=== PATIENT | female | born 1965 | race Caucasian/White ===

== ENCOUNTER 2021-03-12 08:47 | Outpatient (REF) | payer MEDICARE, OTHER, SELFPAY ==
[2021-03-12 09:56] LABS: COVID-19 Test Negative (Negative)
== END 2021-03-12 08:48 | disposition home or self-care (01) ==
LOC: HO.LAB 08:47
PROVIDERS: PCP Nurse Practitioner; Visit Provider Internal Medicine
DX: Z20.822 Contact with and (suspected) exposure to COVID-19 (principal)
CPT/HCPCS: 36415; 87635; C9803

== ENCOUNTER 2024-10-28 11:03 | Outpatient (AMB) | payer MEDICARE, OTHER, MEDICAID, SELFPAY ==
--- OUTSIDE RECORDS SUMMARY | 2024-10-28 11:05 | XMS_ITS | Encounter Summary ---
Author Organization [facility] Address [address] [place] [phone] Phone Care Team Providers Care Sales Associate Name Role Phone Alicia Talavera MD Primary Care Provider [phone]- [phone] Encounter Details Date Type Department Care Team (Late st Contact Info) Description 07/11/2020 Ancillary Orders Virtual Department [address] [place] [phone] Alicia Talavera MD [address] [place] [phone] [email or web address] Breast screening Social History Tobacco Use Types Packs/Day Years Used Date Smoking Tobacco: Never Smokeless Tobacco: Never Alcohol Use Standard Drinks/Week Comments No 0 (1 standard drink = 0.6 oz pur e alcohol) Comments No Sex and Gender Information Value Date Recorded Sex Assigned at Female 11/02/2018 1:09 PM EDT Legal Sex Female 9:38 PM EDT Gender Identity Female 11/02/2018 1:09 PM EDT Sexual Orientation Not on file documented as of this encounter Plan of Treatment Not on file documented as of this encounter Results * BI MAMMOGRAM SCREENING WITH TOMOSYNTHESIS WITH CAD (BILATERAL) (07/24/2020 3:34 PM EDT) Anatomical Region Laterality Modality Breast Left, Breast Right, Breast Bilateral Bila teral Mammography 07/24/2020 3:35 PM EDT Impressions 07/24/2020 3:41 PM EDT BILATERAL BREASTS: Negative, no evidence of malignancy. Normal interval follow- up is recommended in 12 months. Bi-RADS: BI-RADS CATEGORY: 1 - Negative. DENSITY: The breast tissue is heterogeneously dense, which could obscure a lesion on mammography. Narrative 07/24/2020 3:41 PM EDT STUDY: Bilateral screening mammography with tomosynthesis and CAD TECHNIQUE: Bilateral full-field digital screening mammography is obtained and read in conjunction with computer-aided detection. Tomosynthesis as well as 2-D C view imaging were obtained. COMPARISON: Comparison made to multiple prior, most recent May 23, 2019, and most remote January 26, 2014. BREAST COMPOSITION: The breast tissue is heterogeneously dense, which may obscure small masses. BILATERAL BREASTS: No significant masses, suspicious calcifications or other abnormalities are seen. Procedure Note Yvette Fry MD - 07/24/2020 STUDY: Bilateral screening mammography with tomosynthesis and CAD TECHNIQUE: Bilateral full-field digital screening mammography is obtainedand read in conjunction with computer-aided detection. Tomosynthesis aswell as 2-D C view imaging were obtained. COMPARISON: Comparison made to multiple prior, most recent May 23, 2019,and most remote January 26, 2014. BREAST COMPOSITION: The breast tissue is heterogeneously dense, which mayobscure small masses. BILATERAL BREASTS: No significant masses, suspicious calcifications orother abnormalities are seen. IMPRESSION: BILATERAL BREASTS: Negative, no evidence of malignancy. Normal intervalfollow-up is recommended in 12 months. Bi-RADS: BI-RADS CATEGORY: 1 - Negative. DENSITY: The breast tissue is heterogeneously dense, which could obscurea lesion on mammography. Alicia Talavera MD IM MG EXAMS Final Resul t documented in this encounter Visit Diagnoses Diagnosis Breast screening Breast screening, unspecified Breast screening Breast screening, unspecified documented in this encounter Care Teams Sales Associate Relationship Specialty Start Date End Date Alicia Talavera MD [address] [place] [phone] [email or web address] PCP - General Internal Medicine 01/25/17 documented as of this encounter Additional Source Comments The information contained in this document represents components of the legal health record. It is not the complete legal health record.[facility]
--- NOTE | 2024-10-28 12:15 | AM.OFFWIN_ITS ---
Intake Vital Signs 10/28/24 12:20 Height 5 ft 4 in Weight 213 lb BMI 36.6 BP 120/74 Blood Pressure Location Lt brachial Position Sitting Respiration 18 Pulse 64 Pulse Source Pulse Oximeter Temp 97.7 F Temp Source Oral Pulse Oximetry (%) 97 Oxygen Delivery Method Room Air Intake Visit Reasons: BARIATRIC PROGRAM COORDINATOR-Tick Intake Note: Pt is here today for walk in visit. Pt c/o bug bite on R lower leg/calf. Allergies No Known Allergies Allergy (Verified 10/28/24 12:24) HPI BARIATRIC PROGRAM COORDINATOR-Tick HPI Details Patient is a 59-year-old female comes to the walk-in with her mother, came home from day program lesion to the right medial calf suspicious for a bug bite. Patient is poor historian due to cognitive deficiency. No apparent fever chills, malaise or myalgias, weakness, dizziness or vertigo, nausea vomiting or diarrhea, or other significant associated symptoms. Review of Systems Const All systems reviewed & are unremarkable except as noted in HPI and below Physical Exam Exam Exam: Patient has lesion to the right medial calf mid tibial level, with some surrounding erythema and edema. Central puncture, no attached tick or other insect or foreign body. No tenderness, warmth, or streaking or discharge noted. Vital Signs: Last Vital Signs Temp 97.7 F 10/28/24 12:20 Pulse 64 10/28/24 12:20 Resp 18 10/28/24 12:20 BP 120/74 10/28/24 12:20 Pulse Ox 97 10/28/24 12:20 Oxygen Delivery Method Room Air 10/28/24 12:20 BMI result Body Mass Index 36.6 Assessment & Plan Assessment & Plan (1) Insect bite: Code(s): W57.XXXA - Bitten or stung by nonvenomous insect and other nonvenomous arthropods, initial encounter Plan Patient is a 59-year-old female with what appears to be insect bite to the right medial calf, with some erythema and edema surrounding. Possible spider or tick bite, with no obvious insect, although patient is unreliable historian. We will treat with doxycycline for full course due to unknown length of attachment time, and already has some erythema and edema surrounding. Follow up if symptoms persist or worsen and go to the emergency department with worrisome symptoms Medications: New doxycycline monohydrate 100 mg PO BID 28 caps 0RF 14 days Coding Level of Care Code New Pt Level 4 (17851) Diagnoses Insect bite W57.XXXA
[2024-10-28 12:20] VITALS: BP 120/74; PULSE 64; RESP 18; TEMP 36.5; O2SAT 97; BMI 36.6
== END 2024-10-28 12:57 | disposition home or self-care (01) ==
LOC: HO.HMCWIC 11:03
PROVIDERS: PCP Nurse Practitioner; Visit Provider Physician Assistant Medical
DX: T63.481A Toxic effect of venom of other arthropod, accidental (unintentional), initial encounter (principal)

== ENCOUNTER → 2024-10-28 11:03 | Outpatient (BNVA) | payer MEDICARE, OTHER, MEDICAID, SELFPAY | PROVIDERS: PCP Nurse Practitioner; Visit Provider Physician Assistant Medical | DX: S80.861A Insect bite (nonvenomous), right lower leg, initial encounter (principal); W57.XXXA Bitten or stung by nonvenomous insect and other nonvenomous arthropods, initial encounter | CPT/HCPCS: 99202 ==

== ENCOUNTER 2025-01-10 10:30 | Outpatient (REF) | payer MEDICARE, OTHER, MEDICAID, SELFPAY ==
--- NOTE | ~2025-01-10 | XR_ITS ---
EXAMINATION: XR RIBS 3 VIEWS MINIMUM WITH CHEST RIGHT HISTORY: W19.XXXA - Unspecified fall, initial encounter COMPARISON: There are no prior studies available for comparison. FINDINGS: A single PA view of the chest and 4 views of the right ribs are submitted. The lungs are expanded and clear. There is no pleural effusion, pneumothorax, or pulmonary vascular congestion. The heart is normal in size. There is mild to moderate levoscoliosis of the spine. Right ribs are intact. No fracture is seen. XR/XR ribs RT min 3V w CXR1V IMPRESSION: Clear lungs. No right rib fracture is identified. Electronically signed by: Zeeshan Barnes MD 01/10/2025 11:34 AM EDT
--- OUTSIDE RECORDS SUMMARY | 2025-01-10 15:03 | XMS_ITS | Encounter Summary ---
Author Organization [facility] Address [address] [place] [address] Phone Care Team Providers Care Psychodramatist Name Role Phone Alicia Talavera MD Primary Care Provider [phone]- [phone] Encounter Details Date Type Department Care Team (Late st Contact Info) Description 04/29/2017 Ancillary Orders Virtual Department [address] [place] [address] Mila Daly PA [address] [place] [address] [email or web address] [email or web address]; Fever, unspecified fever cause Social History Tobacco Use Types Packs/Day Years Used Date Smoking Tobacco: Never Assessed Comments Unknown Sex and Gender Information Value Date Recorded Sex Assigned at Female 11/02/2018 1:09 PM EDT Legal Sex Female 9:38 PM EDT Gender Identity Female 11/02/2018 1:09 PM EDT Sexual Orientation Not on file documented as of this encounter Plan of Treatment Upcoming Encounters Date Type Department Care Team (Late Contact Info) Description 12/13/2024 Procedure Pass [address] [address] 08/07/2025 8:00 AM EDT Appointment [address] [address] Alicia Talavera MD [address] [place] [address] documented as of this encounter Results * XR CHEST PA AND LATERAL 2 VIEWS (05/03/2017 10:04 AM EST) Anatomical Region Laterality Modality Chest Radiographic Aleida ging 05/03/2017 10:0 5 AM EST Impressions 05/03/2017 10:06 AM EST No evidence of active cardiopulmonary disease. POS [id number] Narrative 05/03/2017 10:06 AM EST Frontal and lateral views are compared with the prior studies of 12/27/2016 and 10/03/2010 and reveal the lungs to be well-expanded and overall clear without focal infiltrates or pleural effusions present. The heart and pulmonary vessels are within normal limits in size and the visualized bony thorax appears intact. Procedure Note Kim Max MD - 05/03/2017 Frontal and lateral views are compared with the prior studies of12/27/2016 and 10/03/2010 and reveal the lungs to be well-expanded andoverall clear without focal infiltrates or pleural effusions present. Theheart and pulmonary vessels are within normal limits in size and thevisualized bony thorax appears intact. IMPRESSION: No evidence of active cardiopulmonary disease. POS [id number] Mila BROUSSARD IMG XR CHEST Final Result documented in this encounter Visit Diagnoses Diagnosis Cough Fever, unspecified fever cause Cough Fever, unspecified fever cause documented in this encounter Care Teams Psychodramatist Relationship Specialty Start Date End Date Alicia Talavera MD [address] [place] [phone] [email or web address] PCP - General Internal Medicine 01/25/17 documented as of this encounter Additional Source Comments The information contained in this document represents components of the legal health record. It is not the complete legal health record.[facility]
--- OUTSIDE RECORDS SUMMARY | 2025-01-10 15:03 | XMS_ITS | Encounter Summary ---
Author Organization [facility] Address [address] [place] [address] Care Team Providers Care Research Animal Facility Supervisor Name Role Phone Alicia Talavera Primary Care Provider [phone]- [phone] Reason for Visit * Reason Onset Date Comments Med Refill 02/09/2020 Encounter Details Date Type Department Care Team (Late st Contact Info) Description 02/09/2020 Refill [facility] [address] [place] [phone] Nini Hinton LPN Nonintractable generalized idiopathic epilepsy without status epilepticus Social History Tobacco Use Types Packs/Day Years Used Date Smoking Tobacco: Never Smokeless Tobacco: Never Comments:: Alcohol Use Standard Drinks/Week Comments No 0 (1 standard drink = 0.6 oz pur e alcohol) Comments Unknown Sex and Gender Information Value Date Recorded Sex Assigned at Female 06/15/2019 4:25 PM EDT Legal Sex Female 3:49 AM EDT Gender Identity Female 06/15/2019 4:25 PM EDT Sexual Orientation Straight 06/15/2019 4: 25 PM EDT documented as of this encounter Plan of Treatment Not on file documented as of this encounter Visit Diagnoses Diagnosis Nonintractable generalized idiopathic epilepsy without status epilepticus documented in this encounter Care Teams Research Animal Facility Supervisor Relationship Specialty Start Date End Date Alicia Talavera [address] [place] [phone] PCP - General 10/08/16 documented as of this encounter
--- OUTSIDE RECORDS SUMMARY | 2025-01-10 15:03 | XMS_ITS | Encounter Summary ---
Author Organization [facility] Address [address] [place] [address] Phone Care Team Providers Care Cleaner Window Name Role Phone Alicia Talavera MD Primary Care Provider [phone]- [phone] Encounter Details Date Type Department Care Team (Late st Contact Info) Description 01/25/2017 Ancillary Orders Virtual Department [address] [place] [phone] Alicia Talavera MD [address] [place] [phone] [email or web address] Breast screening Social History Tobacco Use Types [...] Encounters Date Type Department Care Team (Late st Contact Info) Description 12/13/2024 Procedure Pass [address] [address] 08/07/2025 8:00 AM EDT Appointment [address] [address] Alicia Talavera MD [address] [place] [phone] documented as of this encounter Results * BI MAMMOGRAM SCREENING WITH TOMOSYNTHESIS WITH CAD (BILATERAL) (05/13/2017 3:44 PM EST) Anatomical Region Laterality Modality Breast Left, Breast Right, Breast Bilateral Bila teral Mammography 05/13/2017 4:4 8 PM EST Impressions 05/13/2017 4:50 PM EST No mammographic evidence of malignancy. BI-RADS CATEGORY: 2 - Benign finding. DENSITY: The breast tissue is heterogeneously dense, an appearance which lowers the sensitivity of mammography. POS - [id number] Narrative 05/13/2017 4:50 PM EST Standard digital full-field 2-D C view and two-plane tomographic imaging was performed and compared with multiple prior studies, most recently 03/03/2016, with utilization of computer-aided detection. The breast parenchyma is heterogeneously dense, somewhat limiting mammographic sensitivity. The stromal markings are essentially unchanged in overall appearance and distribution. No dominant spiculated mass, suspicious clustered microcalcifications, or focal zone of pathologic skin thickening or retraction are noted to have arisen in the interim. Punctate grossly benign-appearing microcalcifications, more numerous on the left than right, display no worrisome interval change. Procedure Note Kim Max MD - 05/13/2017 Standard digital full-field 2-D C view and two-plane tomographic imagingwas performed and compared with multiple prior studies, most xkhzoakt21/13/2016, with utilization of computer-aided detection. The breast parenchyma is heterogeneously dense, somewhat limitingmammographic sensitivity. The stromal markings are essentially unchangedin overall appearance and distribution. No dominant spiculated mass,suspicious clustered microcalcifications, or focal zone of pathologic skinthickening or retraction are noted to have arisen in the interim. Punctategrossly benign-appearing microcalcifications, more numerous on the leftthan right, display no worrisome interval change. IMPRESSION: No mammographic evidence of malignancy. BI-RADS CATEGORY: 2 - Benign finding. DENSITY: The breast tissue is heterogeneously dense, an appearance whichlowers the sensitivity of mammography. POS - [email or web address] us Alicia Talavera MD IMG MG EXAMS Final Resul t documented in this encounter Visit Diagnoses Diagnosis Breast screening Breast screening, unspecified Breast screening Breast screening, unspecified documented in this encounter Care Teams Cleaner Window Relationship Specialty Start Date End Date Alicia Talavera MD [address] [place] [phone] [email or web address] PCP - General Internal Medicine 01/25/17 documented as of this encounter Additional Source Comments The information contained in this document represents components of the legal health record. It is not the complete legal health record.[facility]
--- OUTSIDE RECORDS SUMMARY | 2025-01-10 15:03 | XMS_ITS | Encounter Summary ---
Author Organization [facility] Address [address] [place] [phone] Phone Care Team Providers Care Cinder Worker Name Role Phone Alicia Talavera MD Primary Care Provider [phone]- [phone] Encounter Details Date Type Department Care Team (Late st Contact Info) Description 09/27/2019 Ancillary Orders Virtual Department [address] [place] [phone] Alicia Talavera MD [address] [place] [phone] [email or web address] Post-menopausal Social History Tobacco Use Types Packs/Day Years [...] st Contact Info) Description 12/13/2024 Procedure Pass [address] [address] 08/07/2025 8:00 AM EDT Appointment [address] [address] Alicia Talavera MD [address] [place] [address] [email or web address] documented as of this encounter Visit Diagnoses Diagnosis Post-menopausal Asymptomatic postmenopausal status (age-related) (natural) documented in this encounter Care Teams Cinder Worker Relationship Specialty Start Date End Date Alicia Talaevra MD [address] [place] [email or web address] PCP - General Internal Medicine 01/25/17 documented as of this encounter Additional Source Comments The information contained in this document represents components of the legal health record. It is not the complete legal health record.[facility]
--- OUTSIDE RECORDS SUMMARY | 2025-01-10 15:03 | XMS_ITS | Encounter Summary ---
Author Organization [facility] Address [address] [place] [address] Phone Care Team Providers Care Waste Management Engineer Name Role Phone Alicia Talavera MD Primary Care Provider [phone]- [phone] Encounter Details Date Type Department Care Team (Late st Contact Info) Description 03/30/2019 Ancillary Orders Virtual Department [address] [place] [phone] Alicia Talavera MD [address] [place] [phone] [email or web address] Breast screening Social History Tobacco Use Types [...] st Contact Info) Description 12/13/2024 Procedure Pass [address] [address] 08/07/2025 8:00 AM EDT Appointment [address] [address] Alicia Talavera MD [address] [place] [phone] [email or web address] documented as of this encounter Results * BI MAMMOGRAM SCREENING WITH TOMOSYNTHESIS WITH CAD (BILATERAL) (05/23/2019 9:37 AM EST) Anatomical Region Laterality Modality Breast Left, Breast Right, Breast Bilateral Bila teral Mammography 05/23/2019 11:5 5 AM EST Impressions 05/23/2019 12:00 PM EST No findings suspicious for malignancy. In the absence of a worrisome palpable abnormality, annual screening mammography is recommended. BI-RADS CATEGORY: 2 - Benign finding. DENSITY: The breast tissue is heterogeneously dense, an appearance which lowers the sensitivity of mammography. POS [id number] Narrative 05/23/2019 12:00 PM EST COMPARISON: 12/26/2012 through 05/16/2018. Bilateral 3-D tomosynthesis with 2-D reconstructions in the CC and MLO projection of each breast was obtained. Computer-aided detection system also utilized. No new mass, asymmetry, architectural distortion or suspicious calcifications have become apparent on either side. Scattered punctate calcifications, predominantly on the left, unchanged. No suspicious clusters. Procedure Note Ronak Wolf MD - 05/23/2019 COMPARISON: 12/26/2012 through 05/16/2018. Bilateral 3-D tomosynthesis with 2-D reconstructions in the CC and MLOprojection of each breast was obtained. Computer-aided detection systemalso utilized. No new mass, asymmetry, architectural distortion or suspiciouscalcifications have become apparent on either side. Scattered punctate calcifications, predominantly on the left, unchanged.No suspicious clusters. IMPRESSION: No findings suspicious for malignancy. In the absence of a worrisomepalpable abnormality, annual screening mammography is recommended. BI-RADS CATEGORY: 2 - Benign finding. DENSITY: The breast tissue is heterogeneously dense, an appearance whichlowers the sensitivity of mammography. POS [id number] Alicia Talavera MD IM MG EXAMS Final Resul t documented in this encounter Visit Diagnoses Diagnosis Breast screening Breast screening, unspecified Breast screening Breast screening, unspecified documented in this encounter Care Teams Waste Management Engineer Relationship Specialty Start Date End Date Alicia Talavera MD [address] [place] [phone] [email or web address] PCP - General Internal Medicine 01/25/17 documented as of this encounter Additional Source Comments The information contained in this document represents components of the legal health record. It is not the complete legal health record.[facility]
--- OUTSIDE RECORDS SUMMARY | 2025-01-10 15:03 | XMS_ITS | Encounter Summary ---
Author Organization [facility] Address [address] [place] [address] Phone Care Team Providers Care Lay Up Operator Name Role Phone Alicia Talavera MD Primary Care Provider [phone] Encounter Details Date Type Department Care Team (Late st Contact Info) Description 08/03/2017 Ancillary Orders [facility] Orthopedics & Sports Medicine [address] [place] [address] Tennille Zhu MD [address] [place] [address] Orthopedics & Sports Medicine, [facility] [place] [address] [email or web address] Social History Tobacco Use Types Packs/Day Years [...] st Contact Info) Description 12/13/2024 Procedure Pass [address] [address] 08/07/2025 8:00 AM EDT Appointment [address] [address] Alicia Talavera MD [address] [place] [address] [email or web address] documented as of this encounter Visit Diagnoses Not on filedocumented in this encounter Care Teams Lay Up Operator Relationship Specialty Start Date End Date Alicia Talavera MD [address] [place] [address] [email or web address] PCP - General Internal Medicine 01/25/17 documented as of this encounter Additional Source Comments The information contained in this document represents components of the legal health record. It is not the complete legal health record.[facility]
--- OUTSIDE RECORDS SUMMARY | 2025-01-10 15:03 | XMS_ITS | Encounter Summary ---
Author Organization [facility] Address [address] [place] [address] Phone Care Team Providers Care Cook Syrup Maker Name Role Phone Alicia Talavera MD Primary Care Provider [phone]- [phone] Encounter Details Date Type Department Care Team (Late Contact Info) Description 12/13/2024 Transcribe Orders Virtual Department [address] [place] [address] Alicia Talavera MD [address] [place] [address] [email or web address] Breast screening (Primary Dx) Social History Tobacco Use Types Packs/Day Years Used Date Smoking Tobacco: Never Smokeless Tobacco: Never Alcohol Use Standard Drinks/Week Comments No 0 (1 standard drink = 0.6 oz pur e alcohol) Education Answer Date Recorded Are you interested in more education? Not on danyelle e 07/17/2022 Are you concerned about learning? Not on file 07/17/2022 No 07/17/2022 No 07/17/2022 Digital Access Answer Date Recorded No 08/15/2022 No 08/15/2022 Reliable internet access at home? Not on file 08/15/2022 Device with a working camera? Not on file Comments No Sex and Gender Information Value Date Recorded Sex Assigned at Female 11/02/2018 1:09 PM EDT Legal Sex Female 9:38 PM EDT Gender Identity Female 11/02/2018 1:09 PM EDT Sexual Orientation Not on file documented as of this encounter Plan of Treatment Upcoming Encounters Date Type Department Care Team (Late st Contact Info) Description 12/13/2024 Procedure Pass [facility], [address] [address] 08/07/2025 8:00 AM EDT Appointment [address] [address] Alicia Talavera MD [address] [place] [address] [email or web address] Scheduled Orders Name Type Priority Associated Diagnoses Orde r Schedule Mammogram Screening (Bilateral) Imaging Routine Breast screening Expected: 01/12/2025, Expires: 12/13/2025 documented as of this encounter Visit Diagnoses Diagnosis Breast screening- Primary Breast screening, unspecified documented in this encounter Care Teams Cook Syrup Maker Relationship Specialty Start Date End Date Alicia Talavera MD [address] [place] [address] [email or web address] PCP - General Internal Medicine 01/25/17 documented as of this encounter Additional Source Comments The information contained in this document represents components of the legal health record. It is not the complete legal health record.[facility]
--- OUTSIDE RECORDS SUMMARY | 2025-01-10 15:03 | XMS_ITS | Encounter Summary ---
Author Organization [facility] Address [address] [place] [address] Phone Care Team Providers Care Rn Faculty Name Role Phone Alicia Talavera MD Primary Care Provider [phone]- [phone] Reason for Referral * Physical Therapy (Routine) - Closed Specialty Diagnoses / Procedures Referred By Conthollis t Referred To Contact Physical Therapy Diagnoses Encounter for rehabilitation System, Provider Not In, PhD [id number] [place] [address] [address] [place] [address] Phone: tel: Referral ID Status Reason Start Date Expiration Date Visits Re quested Visits Authorized [id number] Closed 12/15/2017 03/21/2018 20 20 Encounter Details Date Type Department Care Team (Latest Contact Info) Description 12/15/2017 Transcribe Orders [facility] [address] [place] [address] Alicia Talavera MD [address] [place] [address] [email or web address] Encounter for rehabilitation (Primary Dx) Social History Tobacco Use Types [...] st Contact Info) Description 12/13/2024 Procedure Pass [address] [address] 08/07/2025 8:00 AM EDT Appointment [address] [address] Alicia Talavera MD [address] [place] [address] [email or web address] documented as of this encounter Procedures Procedure Name Priority Date/Time Associated Diagnosis Comments AMB REFERRAL TO [facility] PHYSICAL THERAPY Routine 01/12/2018 3:59 PM EDT Encounter for rehabilitation documented in this encounter Results * Ambulatory referral to [facility] Physical Therapy (01/12/2018 3:59 PM EDT) us Provider Not In System PhD AMB [facility] REFERRALS Fin al Result documented in this encounter Visit Diagnoses Diagnosis Encounter for rehabilitation- Primary documented in this encounter Care Teams Rn Faculty Relationship Specialty Start Date End Date Alicia Talavera MD [address] [place] [address] [email or web address] PCP - General Internal Medicine 01/25/17 documented as of this encounter Additional Source Comments The information contained in this document represents components of the legal health record. It is not the complete legal health record.[facility]
--- OUTSIDE RECORDS SUMMARY | 2025-01-10 15:03 | XMS_ITS | Encounter Summary ---
Author Organization [facility] Address [address] [place] [address] Phone Care Team Providers Care Boxing Trainer Name Role Phone Alicia Talavera MD Primary Care Provider [phone] Encounter Details Date Type Department Care Team (Late st Contact Info) Description 03/13/2020 Transcribe Orders Virtual Department [address] [place] [address] Alicia Talavera MD [address] [place] [phone] [email or web address] Abdominal pain, unspecified abdominal location (Primary Dx) Social History Tobacco Use Types [...] (Late Contact Info) Description 12/13/2024 Procedure Pass [address] [address] 08/07/2025 8:00 AM EDT Appointment [address] [address] Alicia Talavera MD [address] [place] [address] [phone] [email or web address] documented as of this encounter Results * XR ABDOMEN 1 VIEW (03/14/2020 9:30 AM EST) Anatomical Region Laterality Modality Abdomen Computed Radiogr aphy 03/14/2020 9:35 AM EST Impressions 03/14/2020 9:36 AM EST Nonspecific, nonobstructive bowel gas pattern with findings consistent with coprostasis. Narrative 03/14/2020 9:36 AM EST XR ABDOMEN 1 VIEW Single AP view of the abdomen COMPARISON: None FINDINGS: The bowel gas pattern is nonspecific with a large amount of stool being present scattered throughout the abdomen. Bowel gas extends into the rectosigmoid. There are degenerative changes of the lumbar spine. No convincing evidence of bowel obstruction or free air. Procedure Note Fredrick Baig MD - 03/14/2020 XR ABDOMEN 1 VIEW Single AP view of the abdomen COMPARISON: None FINDINGS: The bowel gas pattern is nonspecific with a large amount ofstool being present scattered throughout the abdomen. Bowel gas extendsinto the rectosigmoid. There are degenerative changes of the lumbar spine.No convincing evidence of bowel obstruction or free air. IMPRESSION: Nonspecific, nonobstructive bowel gas pattern with findings consistentwith coprostasis. Alicia Talavera MD IMG XR ABDOMEN Final Resul t documented in this encounter Visit Diagnoses Diagnosis Abdominal pain, unspecified abdominal location- Primary Abdominal pain, unspecified abdominal location documented in this encounter Care Teams Boxing Trainer Relationship Specialty Start Date End Date Alicia Talavera MD [address] [place] [address] [email or web address] PCP - General Internal Medicine 01/25/17 documented as of this encounter Additional Source Comments The information contained in this document represents components of the legal health record. It is not the complete legal health record.[facility]
--- OUTSIDE RECORDS SUMMARY | 2025-01-10 15:03 | XMS_ITS | Encounter Summary ---
Author Organization [facility] Address [address] [place] [address] Phone Care Team Providers Care Correspondence Clerk Name Role Phone Alicia Talavera MD Primary Care Provider [phone] Encounter Details Date Type Department Care Team (Late st Contact Info) Description 02/06/2020 Transcribe Orders Virtual Department [address] [place] [address] Alicia Talavera MD [address] [place] [address] [email or web address] Low back pain, unspecified back pain laterality, unspecified chronicity, unspecified whether sciatica present (Primary Dx); Rib pain on left side; Rib pain on right side Social History Tobacco Use Types Packs/Day Years [...] st Contact Info) Description 12/13/2024 Procedure Pass [address] [address] 08/07/2025 8:00 AM EDT Appointment [address] [address] Alicia Talavera MD [address] [place] [address] [email or web address] documented as of this encounter Results * XR LUMBOSACRAL SPINE 4 OR MORE VIEWS (02/09/2020 3:30 PM EST) Anatomical Region Laterality Modality L-spine Computed Radiogr aphy 02/09/2020 3:31 PM EST Impressions 02/09/2020 3:33 PM EST Stable osteopenia and mild L5-S1 facet arthropathy. No significant degenerative changes or compression fractures. Narrative 02/09/2020 3:33 PM EST HISTORY: As above. COMPARISON: 07/09/2015. LUMBAR SPINE RADIOGRAPH FINDINGS: 6 images obtained. Chronic moderate diffuse osteopenia. Stable mild lumbar spine curvature convex to the right. No significant scoliosis. No acute fracture or malalignment. Stable multilevel endplate spurring and mild L5-S1 facet arthropathy. No compression fractures. No spondylolysis. No destructive or suspicious bone lesions. Mild diffuse colonic stool volume. Procedure Note Beck Cohen MD - 02/09/2020 HISTORY: As above. COMPARISON: 07/09/2015. LUMBAR SPINE RADIOGRAPH FINDINGS: 6 images obtained. Chronic moderate diffuse osteopenia. Stable mild lumbar spine curvatureconvex to the right. No significant scoliosis. No acute fracture ormalalignment. Stable multilevel endplate spurring and mild L5-S1 facetarthropathy. No compression fractures. No spondylolysis. No destructive orsuspicious bone lesions. Mild diffuse colonic stool volume. IMPRESSION: Stable osteopenia and mild L5-S1 facet arthropathy. No significantdegenerative changes or compression fractures. Alicia Talavera MD IMG XR SPINE Final Resul t documented in this encounter Visit Diagnoses Diagnosis Low back pain, unspecified back pain laterality, unspecified chronicity, unspecified whether sciatica present- Primary Rib pain on left side Rib pain on right side Low back pain, unspecified back pain laterality, unspecified chronicity, unspecified whether sciatica present documented in this encounter Care Teams Correspondence Clerk Relationship Specialty Start Date End Date Alicia Talavera MD [address] [place] [address] [email or web address] PCP - General Internal Medicine 01/25/17 documented as of this encounter Additional Source Comments The information contained in this document represents components of the legal health record. It is not the complete legal health record.[facility]
--- OUTSIDE RECORDS SUMMARY | 2025-01-10 15:03 | XMS_ITS | Encounter Summary ---
Author Organization [facility] Address [address] [place] [address] Phone Care Team Providers Care Product Controller Name Role Phone Alicia Talavera MD Primary Care Provider [phone] Encounter Details Date Type Department Care Team (Late st Contact Info) Description 08/03/2017 Ancillary Orders [address] [address] Tennille Zhu MD [address] [place] [address] Orthopedics & Sports Medicine, [place] [address] [email or web address] Pain of right hand Social History Tobacco Use Types Packs/Day Years [...] st Contact Info) Description 12/13/2024 Procedure Pass [address] [address] 08/07/2025 8:00 AM EDT Appointment [address] [address] Alicia Talavera MD [address] [place] [address] documented as of this encounter Results * XR HAND 3 OR MORE VIEWS (RIGHT) (08/05/2017 1:45 PM EDT) Narrative Gretchen Wood - 08/05/2017 1:46 PM EDT This image report has been auto-finalized and has not been read by a Radiologist. Interpretation has been included in the provider encounter note for this date of service. us Tennille Zhu MD IMG XR UPPER EXTREMITY Final Result documented in this encounter Visit Diagnoses Diagnosis Pain of right hand Pain of right hand documented in this encounter Care Teams Product Controller Relationship Specialty Start Date End Date Alicia Talavera MD [address] [place] [address] [email or web address] PCP - General Internal Medicine 01/25/17 documented as of this encounter Additional Source Comments The information contained in this document represents components of the legal health record. It is not the complete legal health record.[facility]
--- OUTSIDE RECORDS SUMMARY | 2025-01-10 15:03 | XMS_ITS | Encounter Summary ---
Author Organization [facility] Address [address] [place] [address] Phone Care Team Providers Care Gamma Ray Operator Name Role Phone Alicia Talavera MD Primary Care Provider [phone] Encounter Details Date Type Department Care Team (Late st Contact Info) Description 08/31/2017 Ancillary Orders [facility] Orthopedics & Sports Medicine [address] [place] [address] Nancy Del Rio PA-C [address] [place] [address] Orthopedics & Sports Medicine, [facility] [place] [address] Social History Tobacco Use Types Packs/Day Years [...] st Contact Info) Description 12/13/2024 Procedure Pass [address] [address] 08/07/2025 8:00 AM EDT Appointment [address] [address] Alicia Talavera MD [address] [place] [address] documented as of this encounter Visit Diagnoses Not on filedocumented in this encounter Care Teams Gamma Ray Operator Relationship Specialty Start Date End Date Alicia Talavera MD [address] [place] [address] [email or web address] PCP - General Internal Medicine 01/25/17 documented as of this encounter Additional Source Comments The information contained in this document represents components of the legal health record. It is not the complete legal health record.[facility]
--- OUTSIDE RECORDS SUMMARY | 2025-01-10 15:03 | XMS_ITS | Encounter Summary ---
Author Organization [facility] Address [address] [place] [address] Phone Care Team Providers Care Acoustical Tile Patternmaker Name Role Phone Alicia Talavera MD Primary Care Provider [phone] Encounter Details Date Type Department Care Team (Late Contact Info) Description 11/18/2018 Transcribe Orders [facility] [address] [place] [address] Linda Vargas MD [address] [place] [phone] [email or web address] Cursive epilepsy (Primary Dx) Social History Tobacco Use Types [...] (Late Contact Info) Description 12/13/2024 Procedure Pass [address] [address] 08/07/2025 8:00 AM EDT Appointment [address] [address] Alicia Talavera MD [address] [place] [address] [email or web address] documented as of this encounter Results * (ABNORMAL) Phenobarbital (11/18/2018 10:01 AM EDT) PHENOBARBITAL 30.9(H) 10.0 - 30.0 ug/mL [facility] Comment:Toxic: Greater than 50.0 ug/ml. Blood 11/18/2018 10:0 1 AM EDT 11/18/2018 10:08 AM EDT Linda Vargas MD LAB BLOOD ORDERABLES Fin al Result Performing Organization Address [facility]/ZIP Co de Phone Number [address] [address] * (ABNORMAL) Dilantin level (11/18/2018 10:01 AM EDT) Pathologist [facility] DILANTIN 24.0(H) 10 - 20 ug/mL [facility] Blood 11/18/2018 10:0 1 AM EDT 11/18/2018 10:08 AM EDT us Linda Vargas MD LAB BLOOD ORDERABLES Fin al Result Performing Organization Address City/[facility]/ZIP Co de Phone Number [address] [address] * (ABNORMAL) Comprehensive metabolic panel (11/18/2018 10:01 AM EDT) SODIUM 140 133 - 146 mmol/L [facility] POTASSIUM 4.4 3.3 - 5.1 mmol/L [facility] CHLORIDE 101 96 - 108 mmol/L [facility] CO2 30 21 - 35 mmol/L [facility] BUN 8 6 - 19 mg/dL [facility] CREATININE 0.50 0.5 - 1.5 mg/dL [facility] GLUCOSE 97 70 - 99 mg/dL [facility] ALBUMIN 4.1 3.9 - 4.8 g/dL [facility] TOTAL PROTEIN 7.4 6.5 - 8.0 g/dL [facility] CALCIUM 9.5 8.4 - 10.3 mg/dL [facility] ALKALINE PHOSPHATASE 192(H) 39 - 117 U/L [facility] TOTAL BILIRUBIN 0.2 0.0 - 1.2 mg/dL [facility] AST 15 0 - 37 U/L [facility] ALT 15 0 - 40 U/L [facility] GLOBULIN 3.3 1 - 4.8 g/dL [facility] EGFR 112 >59 mL/min/1.7 3m2 [facility] Comment:If patient is black, multiply result by 1.159. Estimated glomerular filtration rate calculated using the CKD-EPI equation. ANION GAP 13 10 - 20 mmol/L [facility] Blood 11/18/2018 10:0 1 AM EDT 11/18/2018 10:08 AM EDT us Linda Vargas MD LAB BLOOD ORDERABLES Fin al Result Performing Organization Address City/State/[facility] Co de Phone Number [address] [address] documented in this encounter Visit Diagnoses Diagnosis Cursive epilepsy- Primary Other forms of epilepsy and recurrent seizures without mention of intractable epilepsy documented in this encounter Care Teams Acoustical Tile Patternmaker Relationship Specialty Start Date End Date Alicia Talavera MD [address] [place] [address] [email or web address] PCP - General Internal Medicine 01/25/17 documented as of this encounter Additional Source Comments The information contained in this document represents components of the legal health record. It is not the complete legal health record.[facility]
--- OUTSIDE RECORDS SUMMARY | 2025-01-10 15:03 | XMS_ITS | Encounter Summary ---
Author Organization [facility] Address [address] [place] [address] Phone Care Team Providers Care Research Assistant Member Name Role Phone Alicia Talavera MD Primary Care Provider [phone]- [phone] Encounter Details Date Type Department Care Team (Late st Contact Info) Description 10/12/2019 Ancillary Orders Virtual Department [address] [place] [address] Alicia Talavera MD [address] [place] [address] [email or web address] Post-menopausal; Osteopenia, unspecified location Social History Tobacco Use Types Packs/Day Years [...] st Contact Info) Description 12/13/2024 Procedure Pass [address] [address] 08/07/2025 8:00 AM EDT Appointment [address] [address] Alicia Talavera MD [address] [place] [address] [email or web address] documented as of this encounter Visit Diagnoses Diagnosis Post-menopausal Asymptomatic postmenopausal status (age-related) (natural) Osteopenia, unspecified location documented in this encounter Care Teams Research Assistant Member Relationship Specialty Start Date End Date Alicia Talavera MD [address] [place] [address] [email or web address] PCP - General Internal Medicine 01/25/17 documented as of this encounter Additional Source Comments The information contained in this document represents components of the legal health record. It is not the complete legal health record.[facility]
--- OUTSIDE RECORDS SUMMARY | 2025-01-10 15:03 | XMS_ITS | Encounter Summary ---
Author Organization [facility] Address [address] [place] [address] Phone Care Team Providers Care Express Clerk Name Role Phone Alicia Talavera MD Primary Care Provider [phone]- [phone] Encounter Details Date Type Department Care Team (Late st Contact Info) Description 01/09/2020 Ancillary Orders Virtual Department [address] [place] [address] Alicia Talavera MD [address] [place] [email or web address] Osteoporosis, unspecified osteoporosis type, unspecified pathological fracture presence Social History Tobacco Use Types Packs/Day Years [...] st Contact Info) Description 12/13/2024 Procedure Pass [address] [address] 08/07/2025 8:00 AM EDT Appointment [address] [address] Alicia Talavera MD [address] [place] [address] [email or web address] documented as of this encounter Results * BD DXA AXIAL (SPINE) WITH HIP (01/29/2020 3:31 PM EST) Anatomical Region Laterality Modality Bone Density Bone Density 01/29/2020 3:32 PM EST Impressions 01/29/2020 3:34 PM EST Osteopenia with interval decrease in lumbar spine bone mineral density since 2010. POS - [id number] Narrative 01/29/2020 3:34 PM EST This is a 54-year-old apparently postmenopausal white female with a documented history of osteopenia, who is not on estrogen replacement therapy but does take daily calcium supplements and denies a family history of osteoporosis or a perceived height loss. Evaluation of the lumbar spine and hips was performed and felt to be technically adequate with comparison made to multiple prior studies, most recently 01/15/2011. Total bone mineral density in the L1-L4 vertebral bodies was calculated at 0.887 gm/cm2 with a T-score of -1.5 and Z-score of -0.6, falling within the WHO classification of osteopenia, representing an interval decline of 3.2% since 2010. Total bone mineral density in the right hip was calculated at 0.762 gm/cm2 with a T-score of -1.5 and Z-score of -0.9 falling within the WHO classification of osteopenia, without significant interval change from 2010. Total bone mineral density in the left hip was calculated at 0.767 gm/cm2 with a T-score of -1.4 and Z-score of -0.9 falling within the WHO classification of osteopenia, without significant interval change from 2010. Procedure Note Dalton Gonzalez MD - 01/29/2020 This is a 54-year-old apparently postmenopausal white female with adocumented history of osteopenia, who is not on estrogen replacementtherapy but does take daily calcium supplements and denies a familyhistory of osteoporosis or a perceived height loss. Evaluation of the lumbar spine and hips was performed and felt to betechnically adequate with comparison made to multiple prior studies, mostrecently 01/15/2011. Total bone mineral density in the L1-L4 vertebral bodies was calculated at0.887 gm/cm2 with a T-score of -1.5 and Z-score of -0.6, falling withinthe WHO classification of osteopenia, representing an interval decline of3.2% since 2010. Total bone mineral density in the right hip was calculated at 0.762 gm/xs0fiyf a T-score of -1.5 and Z-score of -0.9 falling within the WHOclassification of osteopenia, without significant interval change [id number]. Total bone mineral density in the left hip was calculated at 0.767gm/cm2 with a T-score of -1.4 and Z-score of -0.9 falling within the WHOclassification of osteopenia, without significant interval change [id number]. IMPRESSION: Osteopenia with interval decrease in lumbar spine bone mineral densitysince 2010. POS - [id number] Alicia Talavera MD IM BD BONE DENSITY DEXA nal Result documented in this encounter Visit Diagnoses Diagnosis Osteoporosis, unspecified osteoporosis type, unspecified pathological fracture presence Osteoporosis, unspecified osteoporosis type, unspecified pathological fracture presence documented in this encounter Care Teams Express Clerk Relationship Specialty Start Date End Date Alicia Talavera MD [address] [place] [address] [email or web address] PCP - General Internal Medicine 01/25/17 documented as of this encounter Additional Source Comments The information contained in this document represents components of the legal health record. It is not the complete legal health record.[facility]
--- OUTSIDE RECORDS SUMMARY | 2025-01-10 15:03 | XMS_ITS | Encounter Summary ---
Author Organization [facility] Address [address] [place] [address] Phone Care Team Providers Care Wood Boatbuilder Name Role Phone Alicia Talavera MD Primary Care Provider [phone]- [phone] Encounter Details Date Type Department Care Team (Late st Contact Info) Description 07/11/2020 Ancillary Orders Virtual Department [address] [place] [address] Alicia Talavera MD [address] [place] [address] [email or web address] Breast screening Social History Tobacco Use Types [...] st Contact Info) Description 12/13/2024 Procedure Pass [address] [address] 08/07/2025 8:00 AM EDT Appointment [address] [address] Alicia Talavera MD [address] [place] [address] [email or web address] documented as of this encounter Results * [...] obscurea lesion on mammography. Alicia Talavera MD IMG MG EXAMS Final Resul t documented in this encounter Visit Diagnoses Diagnosis Breast screening Breast screening, unspecified Breast screening Breast screening, unspecified documented in this encounter Care Teams Wood Boatbuilder Relationship Specialty Start Date End Date Alicia Talavera MD [address] [place] [address] [email or web address] PCP - General Internal Medicine 01/25/17 documented as of this encounter Additional Source Comments The information contained in this document represents components of the legal health record. It is not the complete legal health record.[facility]
--- OUTSIDE RECORDS SUMMARY | 2025-01-10 15:03 | XMS_ITS | Encounter Summary ---
Author Organization [facility] Address [address] [place] [address] Care Team Providers Care Excelsior Machine Feeder Name Role Phone Alicia Talavera Primary Care Provider [phone]- [phone] Reason for Visit * Reason Onset Date Comments Med Refill 02/19/2020 Encounter Details Date Type Department Care Team (Late st Contact Info) Description 02/19/2020 Refill [facility] [address] [place] [address] Nini Hinton LPN Nonintractable generalized idiopathic epilepsy [...] epilepticus documented in this encounter Care Teams Excelsior Machine Feeder Relationship Specialty Start Date End Date Alicia Talavera [address] [place] [phone] PCP - General 10/08/16 documented as of this encounter
--- OUTSIDE RECORDS SUMMARY | 2025-01-10 15:03 | XMS_ITS | Encounter Summary ---
Author Organization [facility] Address [address] [place] [address] Phone Care Team Providers Care Order Department Supervisor Name Role Phone Alicia Talavera MD Primary Care Provider [phone] Encounter Details Date Type Department Care Team (Late st Contact Info) Description 08/31/2017 Ancillary Orders [address] [address] Nancy Del Rio PA-C [address] [place] [address] Orthopedics & Sports Medicine, [place] [address] [email or web address] Pain of finger of right hand Social History Tobacco Use [...] st Contact Info) Description 12/13/2024 Procedure Pass [address] [address] 08/07/2025 8:00 AM EDT Appointment [address] [address] Alicia Talavera MD [address] [place] [address] [email or web address] documented as of this encounter Results * XR FINGER 5TH DIGIT (RIGHT) (09/02/2017 3:06 PM EDT) Narrative Rosi Talamantes Y - 09/02/2017 3:06 PM EDT This image report has been auto-finalized and has not been read by a Radiologist. Interpretation has been included in the provider encounter note for this date of service. us Tennille Zhu MD IMG XR UPPER EXTREMITY Final Result documented in this encounter Visit Diagnoses Diagnosis Pain of finger of right hand Pain of finger of right hand documented in this encounter Care Teams Order Department Supervisor Relationship Specialty Start Date End Date Alicia Talavera MD [address] [place] [address] [email or web address] PCP - General Internal Medicine 01/25/17 documented as of this encounter Additional Source Comments The information contained in this document represents components of the legal health record. It is not the complete legal health record.[facility]
--- OUTSIDE RECORDS SUMMARY | 2025-01-10 15:03 | XMS_ITS | Encounter Summary ---
Author Organization [facility] Address [address] [place] [address] Phone Care Team Providers Care Professor Of History Name Role Phone Alicia Talavera MD Primary Care Provider [phone]- [phone] Encounter Details Date Type Department Care Team (Late Contact Info) Description 02/09/2020 Ancillary Orders Virtual Department [address] [place] [address] Alicia Talavera MD [address] [place] [address] [email or web address] Rib pain on left side Social History Tobacco Use Types Packs/Day [...] (Late Contact Info) Description 12/13/2024 Procedure Pass [address] [address] 08/07/2025 8:00 AM EDT Appointment [address] [address] Alicia Talavera MD [address] [place] [address] documented as of this encounter Results * XR RIBS 3 VIEW (BILATERAL) (02/09/2020 3:31 PM EST) Anatomical Region Laterality Modality Chest Computed Radiogr aphy 02/09/2020 3:35 PM EST Impressions 02/09/2020 3:39 PM EST No findings to account for the patient's pain. Narrative 02/09/2020 3:39 PM EST HISTORY: As above. COMPARISON: Chest x-ray 05/03/2017. BILATERAL RIB RADIOGRAPH FINDINGS: 9 images obtained. No acute fracture. No destructive or suspicious bone lesions. Imaged lungs are clear. No acute soft tissue findings Procedure Note Beck Cohen MD - 02/09/2020 HISTORY: As above. COMPARISON: Chest x-ray 05/03/2017. BILATERAL RIB RADIOGRAPH FINDINGS: 9 images obtained. No acute fracture. No destructive or suspicious bone lesions. Imaged lungsare clear. No acute soft tissue findings IMPRESSION: No findings to account for the patient's pain. Alicia Talavera MD IMG XR CHEST Final Resul t documented in this encounter Visit Diagnoses Diagnosis Rib pain on left side Rib pain on left side documented in this encounter Care Teams Professor Of History Relationship Specialty Start Date End Date Alicia Talavera MD [address] [place] [phone] [email or web address] PCP - General Internal Medicine 01/25/17 documented as of this encounter Additional Source Comments The information contained in this document represents components of the legal health record. It is not the complete legal health record.[facility]
--- OUTSIDE RECORDS SUMMARY | 2025-01-10 15:03 | XMS_ITS | Encounter Summary ---
Author Organization [facility] Address [address] [place] [address] Phone Care Team Providers Care Education Paraprofessional Name Role Phone Alicia Talavera MD Primary Care Provider [phone]- [phone] Encounter Details Date Type Department Care Team (Latest Contact Info) Description 08/30/2018 Transcribe Orders [facility] [address] [place] [address] Linda Vargas MA [email or web address] Cursive epilepsy (Primary Dx) Social History Tobacco [...] st Contact Info) Description 12/13/2024 Procedure Pass [address] [address] 08/07/2025 8:00 AM EDT Appointment [address] [address] Alicia Talavera MD [address] [place] [phone] documented as of this encounter Results * Phenytoin, Free & Total (08/30/2018 4:07 PM EDT) PHENYTOIN,FREE 2.[address] [facility] Phenytoin, Total 19.5 10.0 - 20.0 mcg/mL [facility] DPT OF LAB MED AND PAT+ Blood 08/30/2018 4:07 PM EDT 08/30/2018 4:10 PM EDT us Provider Not In System PhD LAB BLOOD ORDERABLES Final Result [facility] DPT OF LAB MED AND PAT+ [address] [place] [address] [facility] [address] [place] [address] * (ABNORMAL) Comprehensive metabolic panel (08/30/2018 4:07 PM EDT) SODIUM 136 133 - 146 mmol/L [facility] POTASSIUM 3.7 3.3 - 5.1 mmol/L [facility] CHLORIDE 97 96 - 108 mmol/L [facility] CO2 30 21 - 35 mmol/L [facility] BUN 7 6 - 19 mg/dL [facility] CREATININE 0.50 0.5 - 1.5 mg/dL [facility] GLUCOSE 94 70 - 99 mg/dL [facility] ALBUMIN 3.9 3.9 - 4.8 g/dL [facility] TOTAL PROTEIN 7.2 6.5 - 8.0 g/dL [facility] CALCIUM 9.3 8.4 - 10.3 mg/dL [facility] ALKALINE PHOSPHATASE 150(H) 39 - 117 U/L [facility] TOTAL BILIRUBIN 0.2 0.0 - 1.2 mg/dL [facility] AST 19 0 - 37 U/L [facility] ALT 19 0 - 40 U/L [facility] GLOBULIN 3.3 1 - 4.8 g/dL [facility] EGFR 112 >59 mL/min/1.7 3m2 [facility] Comment:If patient is black, multiply result by 1.159. Estimated glomerular filtration rate calculated using the CKD-EPI equation. ANION GAP 13 10 - 20 mmol/L [facility] Blood 08/30/2018 4:07 PM EDT 08/30/2018 4:09 PM EDT us Provider Not In System PhD LAB BLOOD ORDERABLES Final Result Performing Organization Address [facility]/ZIP Co de Phone Number [address] [address] * Phenobarbital (08/30/2018 4:07 PM EDT) PHENOBARBITAL 29.8 10.0 - 30.0 ug/mL [facility] Comment:Toxic: Greater than 50.0 ug/ml. Blood 08/30/2018 4:07 PM EDT 08/30/2018 4:09 PM EDT us Provider Not In System PhD LAB BLOOD ORDERABLES Final Result Performing Organization Address [facility] [[email or web address]] Co de Phone Number [address] [phone] documented in this encounter Visit Diagnoses Diagnosis Cursive epilepsy- Primary Other forms of epilepsy and recurrent seizures without mention of intractable epilepsy documented in this encounter Care Teams Education Paraprofessional Relationship Specialty Start Date End Date Alicia Talavera MD [address] [place] [phone] [email or web address] PCP - General Internal Medicine 01/25/17 documented as of this encounter Additional Source Comments The information contained in this document represents components of the legal health record. It is not the complete legal health record.[facility]
--- OUTSIDE RECORDS SUMMARY | 2025-01-10 15:03 | XMS_ITS | Encounter Summary ---
Author Organization [facility] Address [address] [place] [address] Phone Care Team Providers Care Air Director Name Role Phone Alicia Talavera MD Primary Care Provider [phone]- [phone] Encounter Details Date Type Department Care Team (Late st Contact Info) Description 03/28/2018 Ancillary Orders Virtual Department [address] [place] [address] Alicia Talavera MD [address] [place] [address] [email or web address] Breast screening Social History Tobacco Use Types [...] st Contact Info) Description 12/13/2024 Procedure Pass [address] [address] 08/07/2025 8:00 AM EDT Appointment [address] [address] Alicia Talavera MD [address] [place] [address] [email or web address] documented as of this encounter Results * BI MAMMOGRAM SCREENING WITH TOMOSYNTHESIS WITH CAD (BILATERAL) (05/16/2018 9:14 AM EST) Anatomical Region Laterality Modality Breast Left, Breast Right, Breast Bilateral Bila teral Mammography 05/16/2018 11:0 4 AM EST Impressions 05/16/2018 11:06 AM EST No mammographic evidence of malignancy. BI-RADS CATEGORY: 2 - Benign finding. DENSITY: The breast tissue is heterogeneously dense, an appearance which lowers the sensitivity of mammography. POS - CDHMAMA Narrative 05/16/2018 11:06 AM EST Standard digital full-field 2-D C view and two-plane tomographic imaging was performed and compared with multiple prior studies, most recently 05/13/2017, with utilization of computer-aided detection. The breast parenchyma is heterogeneously dense, somewhat limiting mammographic sensitivity. The stromal markings are essentially unchanged in overall appearance and distribution. No dominant spiculated mass, suspicious clustered microcalcifications, or focal zone of pathologic skin thickening or retraction are noted to have arisen in the interim. Punctate grossly benign-appearing microcalcifications are again demonstrated on the left. Procedure Note Kim Max MD - 05/16/2018 Standard digital full-field 2-D C view and two-plane tomographic imagingwas performed and compared with multiple prior studies, most [email or web address]/22/2018, with utilization of computer-aided detection. The breast parenchyma is heterogeneously dense, somewhat limitingmammographic sensitivity. The stromal markings are essentially unchangedin overall appearance and distribution. No dominant spiculated mass,suspicious clustered microcalcifications, or focal zone of pathologic skinthickening or retraction are noted to have arisen in the interim. Punctategrossly benign-appearing microcalcifications are again demonstrated on theleft. IMPRESSION: No mammographic evidence of malignancy. BI-RADS CATEGORY: 2 - Benign finding. DENSITY: The breast tissue is heterogeneously dense, an appearance whichlowers the sensitivity of mammography. POS - CDHMAMA Alicia Talavera MD IMG MG EXAMS Final Resul t documented in this encounter Visit Diagnoses Diagnosis Breast screening Breast screening, unspecified Breast screening Breast screening, unspecified documented in this encounter Care Teams Air Director Relationship Specialty Start Date End Date Alicia Talavera MD [address] [place] [phone] [email or web address] PCP - General Internal Medicine 01/25/17 documented as of this encounter Additional Source Comments The information contained in this document represents components of the legal health record. It is not the complete legal health record.[facility]
--- OUTSIDE RECORDS SUMMARY | 2025-01-10 15:04 | XMS_ITS | Encounter Summary ---
Author Organization [facility] Address [address] [place] [address] Phone Care Team Providers Care Manager Continuous Improvement Name Role Phone Alicia Talavera MD Primary Care Provider [phone]- [phone] Encounter Details Date Type Department Care Team (Late Contact Info) Description 06/24/2023 Transcribe Orders Virtual Department [address] [place] [address] Alicia Talavera MD [address] [place] [address] [email or web address] Breast screening (Primary Dx) Social History Tobacco [...] st Contact Info) Description 12/13/2024 Procedure Pass [facility], [address] [address] 08/07/2025 8:00 AM EDT Appointment [address] [address] Alicia Talavera MD [address] [place] [address] [email or web address] documented as of this encounter Results * BI MAMMOGRAM SCREENING WITH TOMOSYNTHESIS WITH CAD (BILATERAL) (09/14/2023 10:01 AM EDT) Anatomical Region Laterality Modality Breast Left, Breast Right, Breast Bilateral Bila teral Mammography 09/15/2023 1:36 PM EDT Impressions 09/15/2023 1:38 PM EDT No mammographic evidence of malignancy in either breast. Annual screening mammography is recommended. BI-RADS 2 BENIGN The patient will be notified of the results and recommendations. Narrative 09/15/2023 1:38 PM EDT BI MAMMOGRAM SCREENING WITH TOMOSYNTHESIS WITH CAD (BILATERAL) Additional patient information: Screening. COMPARISON: Comparison is made with relevant prior imaging. Breast composition: The breast tissue is heterogeneously dense which may obscure small masses. FINDINGS: Benign calcifications in both breasts, left greater than right, stable dating back to at least 2019. No abnormal masses, suspicious calcifications, or other significant findings are identified mammographically in either breast. Procedure Note Unique Yusuf MD - 09/15/2023 BI MAMMOGRAM SCREENING WITH TOMOSYNTHESIS WITH CAD (BILATERAL) Additional patient information: Screening. COMPARISON: Comparison is made with relevant prior imaging. Breast composition: The breast tissue is heterogeneously dense which mayobscure small masses. FINDINGS: Benign calcifications in both breasts, left greater than right, stabledating back to at least 2019. No abnormal masses, suspicious calcifications, or other significantfindings are identified mammographically in either breast. IMPRESSION: No mammographic evidence of malignancy in either breast. Annual screening mammography is recommended. BI-RADS 2 BENIGN The patient will be notified of the results and recommendations. Alicia Talavera MD IMG MG EXAMS Final Resul t documented in this encounter Visit Diagnoses Diagnosis Breast screening- Primary Breast screening, unspecified Breast screening Breast screening, unspecified documented in this encounter Care Teams Manager Continuous Improvement Relationship Specialty Start Date End Date Alicia Talavera MD [address] [place] [phone] [email or web address] PCP - General Internal Medicine 01/25/17 documented as of this encounter Additional Source Comments The information contained in this document represents components of the legal health record. It is not the complete legal health record.[facility]
--- OUTSIDE RECORDS SUMMARY | 2025-01-10 15:04 | XMS_ITS | Clinical Summary ---
Author Organization [facility] Address [address] [place] [address] Phone Care Team Providers Care Piece Goods Clerk Name Role Phone Alicia Talavera MD Primary Care Provider [phone]- [phone] Allergies No known active allergies Medications cholecalciferol (VITAMIN D3) 5,000 unit tablet 4,000 Units. as directed Orally Active b complex vitamins capsule as directed Orally Active phenytoin (DILANTIN) 100 MG ER capsule 2 caps in AM (200mg) and 1 cap (100mg) every evening EXPECT Wednesday 2 caps nightly Active calcitriol (ROCALTROL) 0.25 MCG capsule 1 capsule Orally Once a day Active docusate sodium (COLACE) 100 MG capsule nightly at bedtime. 1 capsule Active folic acid (FOLVITE) 1 MG tablet Take 1,000 mcg by mouth daily. 5 07/17/2017 Active calcium citrate-vitamin D3 (CITRACAL+D) 950 mg (200 mg elemental)-250 units Tab Take 1 tablet by mouth daily. 11 05/23/2017 Active busPIRone (BUSPAR) 10 MG tablet Take 20 mg by mouth 3 (three) times a day. 5 07/17/2017 Active PHENobarbital (LUMINAL) 64.8 MG tablet TAKE 1 1/2 TABS EVERY MORNING AND EVENING MON & WED AND TAKE 1 TABLET ON ,WED, ,SAT AND SUN 1 08/13/2017 Active FLUoxetine (PROZAC) 40 MG capsule Take 50 mg by mouth daily. Active simethicone 125 mg Cap Take 125 mg by mouth 3 (three) times a day as needed. Active desoximetasone 0.25 % [place] 06/16/2022 Active FLUoxetine (PROZAC) 20 MG capsule 06/10/2022 Active famotidine (PEPCID) 20 MG tablet 06/18/2022 Active gabapentin (NEURONTIN) 100 MG capsule nightly at bedtime. 06/10/2022 Active meloxicam (MOBIC) 15 MG tablet 10/30/2022 Active Active Problems No known active problems Encounters Date Type Department Care Team Description 01/03/2025 3:30 PM EDT Office Visit [facility] [address] [place] [address] Araceli Baig MD Encounter for gynecological examination without abnormal finding (Primary Dx) 01/03/2025 1:35 PM EDT - 01/03/2025 11:59 PM EDT Hospital Encounter [facility] [address] [place] [address] Alicia Talavera MD Discharge Disposition: Home or Self Care 01/03/2025 Transcribe Orders [facility] [address] [place] [address] Alicia Talavera MD Bone disease (Primary Dx); Seizure; Vitamin D deficiency, unspecified 12/13/2024 Transcribe Orders Virtual Department [address] [place] [address] Alicia Talavera MD Breast screening (Primary Dx) from Last 3 Months Immunizations Immunization Administration Dates Next Due COVID-19 (Pre-01/11) Pfizer Vaccine, mRNA, PF 12/21/2020 Influenza Quadrivalent MDCK Preservative Free IM 01/09/2022,12/22/2019 Influenza Quadrivalent Preservative Free IM 01/20,02/18/2018,02/08/2016 Zoster recombinant 02/28/2021,12/02/2020 Family History Medical History Relation Comments No Known Problems Father Breast cancer Maternal Grandmother Pancreatic cancer Maternal Grandmother No Known Problems Mother Relation Status Comments Father Alive Maternal Grandmother Mother Alive Social History Tobacco Use Types Packs/Day Years Used Date Smoking Tobacco: Never Smokeless Tobacco: Never Tobacco Cessation:Counseling Given: Not Answered Alcohol Use Standard Drinks/Week Comments No 0 [...] PM EDT Sexual Orientation Not on file Last Filed Vital Signs Vital Sign Reading Time Taken Comments Blood Pressure 120/82 01/03/2025 4:04 PM EDT Pulse 60 05/08/2019 4:40 PM EST Temperature 36.5 C (97.7 F) 05/08/2019 4:40 PM EST Respiratory Rate 11 11/02/2018 3:41 PM EDT Oxygen Saturation 98% 05/08/2019 4:40 PM EST Inhaled Oxygen Concentration - - Weight 94.3 kg (208 lb) 11/24/2023 8:15 AM EDT Height 157.5 cm (5' 2 ) 01/03/2025 4:04 PM EDT Body Mass Index 38.04 11/24/2023 8:15 AM EDT Plan of Treatment Upcoming Encounters Date Type Department Care Team (Late st Contact Info) Description 12/13/2024 Procedure Pass [address] [address] 08/07/2025 8:00 AM EDT Appointment [address] [address] Alicia Talavera MD [address] [place] [address] Health Maintenance Due Date Last Done Comments Adult Td,Tdap Booster 1965 DEPRESSION SCREENING 1979 HEPATITIS C SCREENING 08/18/1985 HIV ONE-TIME SCREENING (18-65 YEARS) 08/18/1985 COLOGUARD 08/18/2012 COLONOSCOPY 08/18/2012 COLORECTAL CANCER SCREENING 08/18/2012 FIT TEST 08/18/2012 FOBT 08/18/2012 SIGMOIDOSCOPY 08/18/2012 VIRTUAL COLONOSCOPY 08/18/2012 INFLUENZA VACCINE (#1) 2024 , 12/22/2022, 01/09/2022, Additional history exists COVID-19 VACCINE ( season) 2024 02/15/2024, 12/22/2022, 01/09/2022, Additional history exists MAMMOGRAM 09/13/2025 09/14/2023, 050 10/2022, 07/24/2020, Additional history exists PAP SMEAR 11/09/2025 11/09/2022, 06/20, 07/05/2015 PHENYTOIN (DILANTIN) LEVEL 01/03/202601/03, 06/04/2023, 06/05/2022, Additional history exists SCREENING FOR DIABETES 01/04/2028 01/03/2025, 2024 LIPID PANEL 01/03/2030 01/03/2025, 10/0 11/2023, 12/09/2022, Additional history exists RSV VACCINE (1 - 1-dose 75+ series) 08/18/2042 ZOSTER VACCINES Completed 02/28/2021, 12/02/2020 PNEUMOCOCCAL VACCINES (50+ years) Completed 02/05/2023 SMOKING STATUS SCREENING (Once After 26 Yrs) Completed 11/24/2023 HEPATITIS A VACCINES Aged Out No long er eligible based on patient's age to complete this topic HIB VACCINES Aged Out No longer eligi ble based on patient's age to complete this topic MENINGOCOCCAL VACCINES (ACWY) Aged Out No longer eligible based on patient's age to complete this topic MENINGOCOCCAL VACCINES (B) Aged Out N o longer eligible based on patient's age to complete this topic Medical Devices Not on file Procedures Procedure Name Priority Date/Time Associated Diagnosis Comments 25-OH VITAMIN D Routine 01/03/2025 1:47 PM EDT Bone disease Seizure Vitamin D deficiency, unspecified VITAMIN B12 Routine 01/03/2025 1:47 PM EDT Bone disease Seizure Vitamin D deficiency, unspecified HEMOGLOBIN A1C Routine 01/03/2025 1:47 PM EDT Bone disease Seizure Vitamin D deficiency, unspecified CBC Routine 01/03/2025 1:47 PM EDT Bone disease Seizure Vitamin D deficiency, unspecified LIPID PANEL Routine 01/03/2025 1:47 PM EDT Bone disease Seizure Vitamin D deficiency, unspecified COMPREHENSIVE METABOLIC PANEL Routine 01/03/2025 1:47 PM EDT Bone disease Seizure Vitamin D deficiency, unspecified DILANTIN LEVEL Routine 01/03/2025 1:47 PM EDT Bone disease Seizure Vitamin D deficiency, unspecified PHENOBARBITAL Routine 01/03/2025 1:47 PM EDT Bone disease Seizure Vitamin D deficiency, unspecified BI MAMMOGRAM SCREENING WITH TOMOSYNTHESIS WITH CAD (BILATERAL) Routine 09/14/2023 10:01 AM EDT Breast screening PAP TEST Routine 11/09/2022 12:00 AM EDT from Last 3 Months or Most Recently Relevant to Health Maintenance Results * (ABNORMAL) Comprehensive metabolic panel (01/03/2025 1:47 PM EDT) SODIUM 141 133 - 146 mmol/L [facility] POTASSIUM 4.7 3.3 - 5.1 mmol/L [facility] CHLORIDE 103 96 - 108 mmol/L [facility] CO2 29 21 - 35 mmol/L [facility] BUN 17 6 - 19 mg/dL [facility] CREATININE 0.50 0.5 - 1.5 mg/dL [facility] GLUCOSE 81 70 - 99 mg/dL [facility] ALBUMIN 4.4 3.9 - 4.8 g/dL [facility] TOTAL PROTEIN 7.1 6.5 - 8.0 g/dL [facility] CALCIUM 9.8 8.4 - 10.3 mg/dL [facility] ALKALINE PHOSPHATASE 150(H) 39 - 117 U/L [facility] TOTAL BILIRUBIN <0.2 0.0 - 1.2 mg/dL [facility] AST 17 0 - 37 U/L [facility] ALT 16 0 - 40 U/L [facility] GLOBULIN 2.7 1 - 4.8 g/dL [facility] EGFR 109 >59 mL/min/1.7 3m2 [facility] Comment:Estimated glomerular filtration rate calculated using the CKD-EPI refit equation. ANION GAP 14 10 - 20 mmol/L [facility] Blood 01/03/2025 1:47 PM EDT 01/03/2025 1:51 PM EDT us Alicia Talavera MD LAB BLOOD ORDERABLES Final Result Performing Organization Address City/[facility]/ZIP Co de Phone Number [address] [address] * (ABNORMAL) 25-OH vitamin D (01/03/2025 1:47 PM EDT) 25 OH VIT D (TOTAL) 64(H) 30 - 60 ng/mL [facility] Blood 01/03/2025 1:47 PM EDT 01/03/2025 1:51 PM EDT us Alicia Talavera MD LAB BLOOD ORDERABLES Final Result Performing Organization Address City/[facility]/ZIP Co de Phone Number [address] [address] * (ABNORMAL) CBC (01/03/2025 1:47 PM EDT) WBC 4.14 4.00 - 11.00 K/uL [facility] RBC 4.02 4.00 - 5.20 M/uL [facility] HGB 11.9(L) 12.0 - 16.0 g/dL [facility] HCT 36.1 36.0 - 46.0 % [facility] PLT 250 150 - 450 K/uL [facility] MCV 89.8 80.0 - 100.0 [facility] MCH 29.6 27.0 - 31.0 pg [facility] MCHC 33.0 32.0 - 36.0 g/dL [facility] RDW 13.7 11.5 - 14.5 % [facility] MPV 9.8 8.4 - 12.0 [facility] NRBC 0.00 0.00 /100 WBCs [facility] ABSOLUTE NRBC 0.00 0.00 K/uL [facility] Blood 01/03/2025 1:47 PM EDT 01/03/2025 1:51 PM EDT Alicia Talavera MD LAB BLOOD ORDERABLES Final Result Performing Organization Address [facility]/ZIP Co de Phone Number [address] [address] * Hemoglobin A1c (01/03/2025 1:47 PM EDT) HEMOGLOBIN A1C 5.5 4.3 - 5.8 % [facility] Blood 01/03/2025 1:47 PM EDT 01/03/2025 1:51 PM EDT Alicia Talavera MD LAB BLOOD ORDERABLES Final Result Performing Organization Address [facility]/ZIP Co de Phone Number [address] [address] * Vitamin B12 (01/03/2025 1:47 PM EDT) VITAMIN B12 690 232 - 1,245 pg/mL [facility] Blood 01/03/2025 1:47 PM EDT 01/03/2025 1:51 PM EDT us Alicia Talavera MD LAB BLOOD ORDERABLES Final Result Performing Organization Address [facility]/ZIP Co de Phone Number [address] [address] * (ABNORMAL) Dilantin level (01/03/2025 1:47 PM EDT) DILANTIN 20.8(H) 10 - 20 ug/mL [facility] Blood 01/03/2025 1:47 PM EDT 01/03/2025 1:51 PM EDT Alicia Talavera MD LAB BLOOD ORDERABLES Final Result Performing Organization Address City/[facility]/ZIP Co de Phone Number [address] [address] * (ABNORMAL) Phenobarbital (01/03/2025 1:47 PM EDT) PHENOBARBITAL 32.5(H) 10.0 - 30.0 ug/mL [facility] Comment:Toxic: Greater than 50.0 ug/ml. Blood 01/03/2025 1:47 PM EDT 01/03/2025 1:51 PM EDT Alicia Talavera MD LAB BLOOD ORDERABLES Final Result Performing Organization Address [facility] Co de Phone Number [address] [address] * (ABNORMAL) Lipid panel (01/03/2025 1:47 PM EDT) HDL 77 mg/dL [facility] Comment: Interpretation <40 mg/dL: Low HDL cholesterol (major risk factor for CHD) Greater than or equal to 60 mg/dL: High HDL cholesterol ( negative risk factor for CHD) HDL - cholesterol is affected by a number of factors, e.g. smoking, excerise, hormones, sex and age. CHOLESTEROL 196 0 - 240 mg/dL [facility] TRIGLYCERIDES 96 30 - 160 mg/dL [facility] LDL 100 50 - 129 mg/dL [facility] Comment: LDL levels in terms of risk for coronary heart disease: <100 mg/dL: Optimal 100-129 mg/dL: Near or above optimal 130-159 mg/dL: Borderline high 160-189 mg/dL: High >190 mg/dL: Very High CARDIAC RISK RATIO 2.5(L) 3.3 - 4.4 [facility] Blood 01/03/2025 1:47 PM EDT 01/03/2025 1:50 PM EDT Alicia Talavera MD LAB BLOOD ORDERABLES Final Result [facility] [address] [place] [address] * BI MAMMOGRAM SCREENING WITH TOMOSYNTHESIS WITH [...] than right, stabledating back to at least 2020. No abnormal masses, suspicious calcifications, or other significantfindings are identified mammographically in either breast. IMPRESSION: No mammographic evidence of malignancy in either breast. Annual screening mammography is recommended. BI-RADS 2 BENIGN The patient will be notified of the results and recommendations. Alicia Talavera MD IMG MG EXAMS Final Resul t * Pap Test (11/09/2022 12:00 AM EDT) 11/09/2022 11/10/2022 8:5 9 AM EDT Narrative SEE NARRATIVE - 11/12/2022 8:39 [place] [address] Ecmo Specialist: Beth Ferrer MD CURRICULUM AND INSTRUCTION DIRECTOR Cytology Report FINAL DIAGNOSIS A. PAP SMEAR (SUREPATH) VA: SPECIMEN ADEQUACY: Satisfactory for evaluation. INTERPRETATION: NEGATIVE FOR INTRAEPITHELIAL LESION OR MALIGNANCY. Electronically Signed Out By: DUONG Olson(ASCP) The Pap test is a screening test primarily for squamous cancers and precursors and has associated false-negative and false-positive results. New technologies such as liquid-based preparations may decrease but will not eliminate all false-negative results. Regular sampling and follow-up of unexplained clinical signs and symptoms are recommended to minimize false negative results. PROCEDURES/ADDENDA HPV Testing (Requested) Ordered Date: 11/10/2022 A. PAP SMEAR (SUREPATH) VA: Human Papilloma Virus Test NEGATIVE for high-risk Human Papilloma Virus types 16, 18, 45 and the Other high risk probe set (Includes 31, 33, 35, 39, 51, 52, 56, 58, 59, 66, 68) Note: Testing performed by [employer] Onclarity HR-HPV analysis. Clinical correlation is advised. This HPV test was performed at [facility], [address] [place] [address]. This test has been FDA approved for SurePath cervical cytology specimens. The accuracy and precision of this test for all other specimen sources has been verified in the Cytopathology Laboratory of the [facility] and has not been cleared or approved by the U.S. Food and Drug Administration. Clinical correlation is advised. CLINICAL HISTORY Date of Last Menstrual Period: Not Provided Menstrual History: Unknown Other Clinical Conditions: Screening Pap CURRICULUM AND INSTRUCTION DIRECTOR exam with abnormal findings Other: BLIND PAP SPECIMEN SOURCE A: PAP SMEAR (SUREPATH) VA Patient Name: JENNIFER CORDOVA : 1965 (Age: 57) Sex: F Institution: [facility] Location: [facility] Date of Collection: 11/09/2022 Date of Reported: 11/12/2022 08:39 Results to: Hetal Dunbar MD us Hetal Dunbar MD CYTOLOGY ORDERABLES Final Res ult SEE NARRATIVE from Last 3 Months or Most Recently Relevant to Health Maintenance Insurance MEDICARE PART A & B Member Subscriber Plan / Payer (Ef fective 1994-Present) Name:Jennifer Cordova Member ID:[id number] Relation to Subscriber:Self Name:Jennifer Cordova Subscriber ID:[id number] Payer ID:[id number] Group ID:Not on file Type:Medicare Address: [facility] [employer] [facility] [address] [facility] [place] [address] [facility] MEDICARE SUPPLEMENT MEDICARE PART A & B [facility] MEDICARE SUPPLEMENT MEDICARE PART A & B [facility] MEDIC[facility] SUPPLEMENT MEDICARE PART A & B [facility] MEDICARE SUPPLEMENT MEDICARE PART A & B [facility] MEDICARE SUPPLEMENT MEDICARE PART A & B Member Subscriber Plan / Payer (Ef fective 1994-Present) Name:Jennifer oCrdova Member ID:[id number] Relation to Subscriber:Self Name:Jennifer Cordova Subscriber ID:[id number] Payer ID:[id number] Group ID:Not on file Type:Medicare Address: [facility] [employer] [facility].[address] [address] [facility] MEDICARE SUPPLEMENT MEDICARE PART A & B [facility] MEDIC[facility] SUPPLEMENT MEDICARE PART A & B [facility] MEDICARE SUPPLEMENT MEDICARE PART A & B [facility] MEDICARE SUPPLEMENT Care Teams Piece Goods Clerk Relationship Specialty Start Date End Date Alicia Talavera MD [address] [place], [place] [id number] [email or web address] PCP - General Internal Medicine 01/25/17 Additional Source Comments The information contained in this document represents components of the legal health record. It is not the complete legal health record.[facility]
--- OUTSIDE RECORDS SUMMARY | 2025-01-10 15:04 | XMS_ITS | Encounter Summary ---
Author Organization [facility] Address [address] [place] [address] Phone Care Team Providers Care Corporate Communications Associate Name Role Phone Alicia Talavera MD Primary Care Provider [phone] Encounter Details Date Type Department Care Team (Late Contact Info) Description 06/24/2023 Procedure [facility] [address] [place] [address] Social History Tobacco Use Types Packs/Day Years [...] Upcoming Encounters Date Type Department Care Team ([facility] Contact Info) Description 12/13/2024 Procedure [facility] [address] [place] [address] 08/07/2025 8:00 AM EDT Appointment [facility] [address] [place] [address] Alicia Talavera MD [address] [place] [address] [email or web address] documented as of this encounter Visit Diagnoses Not on filedocumented in this encounter Care Teams Corporate Communications Associate Relationship Specialty Start Date End Date Alicia Talavera MD [address] [place] [address] [email or web address] PCP - General Internal Medicine 01/25/17 documented as of this encounter Additional Source Comments The information contained in this document represents components of the legal health record. It is not the complete legal health record.[facility]
--- OUTSIDE RECORDS SUMMARY | 2025-01-10 15:04 | XMS_ITS | Encounter Summary ---
Author Organization [facility] Address [address] [place] [address] Phone Care Team Providers Care Jazz Singer Name Role Phone Alicia Talavera MD Primary Care Provider [phone] Encounter Details Date Type Department Care Team (Late Contact Info) Description 05/27/2022 Procedure Pass [address] [address] Social History Tobacco Use Types Packs/Day Years [...] Contact Info) Description 12/13/2024 Procedure Pass [address] [address] 08/07/2025 8:00 AM EDT Appointment [address] [address] Alicia Talavera MD [address] [place] [address] [email or web address] documented as of this encounter Visit Diagnoses Not on filedocumented in this encounter Care Teams Jazz Singer Relationship Specialty Start Date End Date Alicia Talavera MD [address] [place] [address] [email or web address] PCP - General Internal Medicine 01/25/17 documented as of this encounter Additional Source Comments The information contained in this document represents components of the legal health record. It is not the complete legal health record.[facility]
--- OUTSIDE RECORDS SUMMARY | 2025-01-10 15:04 | XMS_ITS | Encounter Summary ---
Author Organization [facility] Address [address] [place] [address] Phone Care Team Providers Care Inspector Water Pollution Control Name Role Phone Alicia Talavera MD Primary Care Provider [phone] Encounter Details Date Type Department Care Team (Late st Contact Info) Description 05/27/2022 Transcribe Orders Virtual Department [address] [place] [address] Alicia Talavera MD [address] [place] [address] [email or web address] Breast screening (Primary Dx) Social History Tobacco [...] (Late Contact Info) Description 12/13/2024 Procedure Pass [address] [address] 08/07/2025 8:00 AM EDT Appointment [address] [address] Alicia Talavera MD [address] [place] [phone] [email or web address] documented as of this encounter Results * BI MAMMOGRAM SCREENING WITH TOMOSYNTHESIS WITH CAD (BILATERAL) (07/27/2022 4:20 PM EDT) Anatomical Region Laterality Modality Breast Left, Breast Right, Breast Bilateral Bila teral Mammography 07/28/2022 4:35 PM EDT Impressions 07/28/2022 4:41 PM EDT BILATERAL BREASTS: Negative, no evidence of malignancy. Recommend bilateral annual screening mammography in 12 months. DENSITY: The breast tissue is heterogeneously dense, which could obscure a lesion on mammography. Bi-RADS: BI-RADS CATEGORY: 1 - Negative. RIGHT RECOMMENDATION DUE DATE: 12 Months Recommendation: Right Mammography Screening LEFT RECOMMENDATION DUE DATE: 12 Months Recommendation: Left Mammography Screening Narrative 07/28/2022 4:41 PM EDT STUDY: Bilateral screening mammography with tomosynthesis and CAD TECHNIQUE: Bilateral full-field digital screening mammography is obtained and read in conjunction with computer-aided detection. Tomosynthesis as well as 2-D C view imaging were obtained. COMPARISON: Comparison made to multiple prior studies dating back to January 2014. BILATERAL BREASTS: No new masses, suspicious calcifications or other abnormalities are seen. No significant interval change. Procedure Note Jacqueline Lopez MD - 07/28/2022 STUDY: Bilateral screening mammography with tomosynthesis and CAD TECHNIQUE: Bilateral full-field digital screening mammography is obtainedand read in conjunction with computer-aided detection. Tomosynthesis aswell as 2-D C view imaging were obtained. COMPARISON: Comparison made to multiple prior studies dating back 2013. BILATERAL BREASTS: No new masses, suspicious calcifications or otherabnormalities are seen. No significant interval change. IMPRESSION: BILATERAL BREASTS: Negative, no evidence of malignancy. Recommendbilateral annual screening mammography in 12 months. DENSITY: The breast tissue is heterogeneously dense, which could obscurea lesion on mammography. Bi-RADS: BI-RADS CATEGORY: 1 - Negative. RIGHT RECOMMENDATION DUE DATE: 12 Months Recommendation: Right Mammography Screening LEFT RECOMMENDATION DUE DATE: 12 Months Recommendation: Left Mammography Screening Alicia Talavera MD IMG MG EXAMS Final Resul t documented in this encounter Visit Diagnoses Diagnosis Breast screening- Primary Breast screening, unspecified Breast screening Breast screening, unspecified documented in this encounter Care Teams Inspector Water Pollution Control Relationship Specialty Start Date End Date Alicia Talavera MD [address] [place] [address] [email or web address] PCP - General Internal Medicine 01/25/17 documented as of this encounter Additional Source Comments The information contained in this document represents components of the legal health record. It is not the complete legal health record.[facility]
--- OUTSIDE RECORDS SUMMARY | 2025-01-10 15:04 | XMS_ITS | Encounter Summary ---
Author Organization [facility] Address [address] [place] [address] Phone Care Team Providers Care Showroom Executive Director Name Role Phone Alicia Talavera MD Primary Care Provider [phone]- [phone] Encounter Details Date Type Department Care Team (Late st Contact Info) Description 11/05/2020 Transcribe Orders Virtual Department [address] [place] [address] Alicia Talavera MD [address] [place] [address] [email or web address] Bilateral ankle pain, unspecified chronicity (Primary Dx); Foot pain, right Social History Tobacco Use Types Packs/Day Years [...] st Contact Info) Description 12/13/2024 Procedure Pass [address] [address] 08/07/2025 8:00 AM EDT Appointment [address] [address] Alicia Talavera MD [address] [place] [phone] [email or web address] documented as of this encounter Results * XR FOOT 3 OR MORE VIEWS (RIGHT) (11/06/2020 11:37 AM EDT) Anatomical Region Laterality Modality Foot Right Computed Radiogr aphy 11/06/2020 1:07 PM EDT Impressions 11/06/2020 1:10 PM EDT Nonspecific cortical changes along the margin the first metatarsal head and fifth phalanx which could be correlated with any clinical history of gout. No calcified soft tissue tophi or other significant bony abnormalities apparent. POS - [id number] Narrative 11/06/2020 1:10 PM EDT COMPARISON: None FINDINGS: Frontal, lateral, and oblique views were obtained. No acute traumatic bony abnormality apparent. There appear to be corticated erosive changes along the margin of the first metatarsal head and the fifth PIP and DIP compartments. No calcified soft tissue tophi or additional arthritic changes are noted. No other significant bony abnormality suggested. Procedure Note Dalton Gonzalez MD - 11/06/2020 COMPARISON: None FINDINGS: Frontal, lateral, and oblique views were obtained. No acute traumatic bonyabnormality apparent. There appear to be corticated erosive changes alongthe margin of the first metatarsal head and the fifth PIP and DIPcompartments. No calcified soft tissue tophi or additional arthriticchanges are noted. No other significant bony abnormality suggested. IMPRESSION: Nonspecific cortical changes along the margin the first metatarsal headand fifth phalanx which could be correlated with any clinical history ofgout. No calcified soft tissue tophi or other significant bonyabnormalities apparent. POS - [id number] Alicia Talavera MD IMG XR LOWER EXTREMITY Namita l Result * XR ANKLE 3 OR MORE VIEWS (BILATERAL) (11/06/2020 11:35 AM EDT) Anatomical Region Laterality Modality Ankle Left Computed Radiogr aphy 11/06/2020 1:12 PM EDT Impressions 11/06/2020 1:14 PM EDT No significant bony abnormality or interval change from prior studies apparent. POS - [id number] Narrative 11/06/2020 1:14 PM EDT COMPARISON: 11/02/2018 right ankle and 10/19/2016 left ankle radiographs FINDINGS: Frontal, lateral, and oblique views of the right ankle disclose no fracture, subluxation, or other acute bony abnormality. No progressive arthritic changes. No gross joint effusion. Frontal, lateral, and oblique views of the left ankle reveal no fracture, subluxation, significant arthritis, or other interval change. There is a tiny chronic plantar calcaneal spur. No gross joint effusion. Procedure Note Dalton Gonzalez MD - 11/06/2020 COMPARISON: 11/02/2018 right ankle and 10/19/2016 left ankle radiographs FINDINGS: Frontal, lateral, and oblique views of the right ankle disclose nofracture, subluxation, or other acute bony abnormality. No progressivearthritic changes. No gross joint effusion. Frontal, lateral, and oblique views of the left ankle reveal no fracture,subluxation, significant arthritis, or other interval change. There is atiny chronic plantar calcaneal spur. No gross joint effusion. IMPRESSION: No significant bony abnormality or interval change from prior studiesapparent. POS - [id number] Alciia Talavera MD IMG XR LOWER EXTREMITY Namita l Result documented in this encounter Visit Diagnoses Diagnosis Bilateral ankle pain, unspecified chronicity- Primary Foot pain, right Pain in soft tissues of limb Foot pain, right Pain in soft tissues of limb Bilateral ankle pain, unspecified chronicity documented in this encounter Care Teams Showroom Executive Director Relationship Specialty Start Date End Date Alicia Talavera MD [address] [place] [address] PCP - General Internal Medicine 01/25/17 documented as of this encounter Additional Source Comments The information contained in this document represents components of the legal health record. It is not the complete legal health record.[facility]
--- OUTSIDE RECORDS SUMMARY | 2025-01-10 15:04 | XMS_ITS | Encounter Summary ---
Author Organization [facility] Address [address] [place] [address] Phone Care Team Providers Care Manager Relationship Name Role Phone Alicia Talavera MD Primary Care Provider [phone] Encounter Details Date Type Department Care Team (Late st Contact Info) Description [facility] [address] [address] Alicia Talavera MD [address] [place] [address] [email or web address] Left foot pain; Swelling Social History Tobacco Use Types Packs/Day Years [...] st Contact Info) Description 12/13/2024 Procedure Pass [address] [address] 08/07/2025 8:00 AM EDT Appointment [address] [address] Alicia Talavera MD [address] [place] [phone] [email or web address] documented as of this encounter Results * XR FOOT 3 OR MORE VIEWS (LEFT) (10/21/2020 4:23 PM EDT) Anatomical Region Laterality Modality Foot Left Computed Radiogr aphy 10/21/2020 4:27 PM EDT Impressions 10/21/2020 4:28 PM EDT No progressive degenerative changes. No acute fracture or malalignment detected. Narrative 10/21/2020 4:28 PM EDT Left foot 3 views compared November 15, 2019. No acute fracture or malalignment is identified with particular attention to the lateral forefoot region. Minor irregularity at the medial aspect of the first metatarsal head again noted without progressive pressure erosion or active erosions are elsewhere. Mild regional osteopenia. No pronounced joint space loss, sclerosis or spurring. No bony lesions. Small plantar calcaneal spur again noted. No tibiotalar effusion. Procedure Note Matthew Navarro MD - 10/21/2020 Left foot 3 views compared November 15, 2019. No acute fracture ormalalignment is identified with particular attention to the lateralforefoot region. Minor irregularity at the medial aspect of the firstmetatarsal head again noted without progressive pressure erosion or activeerosions are elsewhere. Mild regional osteopenia. No pronounced jointspace loss, sclerosis or spurring. No bony lesions. Small plantarcalcaneal spur again noted. No tibiotalar effusion. IMPRESSION: No progressive degenerative changes. No acute fracture or malalignmentdetected. Alicia Talavera MD IMG XR LOWER EXTREMITY Namita l Result documented in this encounter Visit Diagnoses Diagnosis Left foot pain Pain in soft tissues of limb Swelling Localized superficial swelling, mass, or lump Left foot pain Pain in soft tissues of limb Swelling Localized superficial swelling, mass, or lump documented in this encounter Care Teams Manager Relationship Relationship Specialty Start Date End Date Alicia Talavera MD [address] [place] [address] [email or web address] PCP - General Internal Medicine 01/25/17 documented as of this encounter Additional Source Comments The information contained in this document represents components of the legal health record. It is not the complete legal health record.[facility]
--- OUTSIDE RECORDS SUMMARY | 2025-01-10 15:04 | XMS_ITS | Encounter Summary ---
Author Organization [facility] Address [address] [place] [address] Phone Care Team Providers Care Photo Mask Cleaner Name Role Phone Alicia Talavera MD Primary Care Provider [phone]- [phone] Encounter Details Date Type Department Care Team (Late Contact Info) Description 12/09/2022 Ancillary Orders [facility], X-Ray - [address] [address] Alicia Talavera MD [address] [place] [phone] [email or web address] Obstipation Social History Tobacco Use Types Packs/Day Years [...] st Contact Info) Description 12/13/2024 Procedure Pass [address] [address] 08/07/2025 8:00 AM EDT Appointment [address] [address] Alicia Talavera MD [address] [place] [address] [email or web address] documented as of this encounter Results * XR ABDOMEN 1 VIEW (12/09/2022 9:09 AM EDT) Anatomical Region Laterality Modality Abdomen Computed Radiogr aphy 12/09/2022 9:17 AM EDT Impressions 12/09/2022 9:18 AM EDT FINDINGS IMPRESSION: Large amount of stool in the right colon. Nonobstructed bowel gas pattern. Partially visualized lung bases and osseous structures are within normal limits. Narrative 12/09/2022 9:18 AM EDT XR ABDOMEN 1 VIEW COMPARISON: Procedure Note Rich Yang MD, CECILIA - 12/09/2022 XR ABDOMEN 1 VIEW COMPARISON: IMPRESSION: FINDINGS IMPRESSION: Large amount of stool in the right colon. Nonobstructed bowel gaspattern. Partially visualized lung bases and osseous structures are within normallimits. Alicia Talavera MD IMG XR ABDOMEN Final Resul t documented in this encounter Visit Diagnoses Diagnosis Obstipation Unspecified constipation Obstipation Unspecified constipation documented in this encounter Care Teams Photo Mask Cleaner Relationship Specialty Start Date End Date Alicia Talavera MD [address] [place] [address] PCP - General Internal Medicine 01/25/17 documented as of this encounter Additional Source Comments The information contained in this document represents components of the legal health record. It is not the complete legal health record.[facility]
--- OUTSIDE RECORDS SUMMARY | 2025-01-10 15:04 | XMS_ITS | Encounter Summary ---
Author Organization [facility] Address [address] [place] [address] Care Team Providers Care Resp Therapist Name Role Phone Alicia Talavera Primary Care Provider [phone]- [phone] Encounter Details Date Type Department Care Team (Late st Contact Info) Description 12/29/2024 Telephone [facility] [address] [place], [place] [phone] Mine Garcia MA Social History Tobacco Use Types Packs/Day Years [...] PM EDT documented as of this encounter Miscellaneous Notes * Telephone Encounter - Mine Garcia MA - 12/29/2024 10:38 AM EDT Follow up appt needed for PHENobarbitaL 64.8 mg tablet med refill. documented in this encounter Plan of Treatment Not on file documented as of this encounter Visit Diagnoses Not on filedocumented in this encounter Care Teams Resp Therapist Relationship Specialty Start Date End Date Alicia Talavera [address] [place] [address] [place] [phone] PCP - General 10/08/16 documented as of this encounter
--- OUTSIDE RECORDS SUMMARY | 2025-01-10 15:04 | XMS_ITS | Encounter Summary ---
Author Organization [facility] Address [address] [place] [address] Phone Care Team Providers Care Assignment Officer Name Role Phone Alicia Talavera MD Primary Care Provider [phone]- [phone] Encounter Details Date Type Department Care Team (Late Contact Info) Description 07/11/2020 Procedure Pass [address] [address] Social History Tobacco Use Types Packs/Day Years [...] (Late Contact Info) Description 12/13/2024 Procedure Pass [address] [address] 08/07/2025 8:00 AM EDT Appointment [address] [address] Alicia Talavera MD [address] [place] [address] [email or web address] documented as of this encounter Visit Diagnoses Not on filedocumented in this encounter Care Teams Assignment Officer Relationship Specialty Start Date End Date Alicia Talavera MD [address] [place] [address] [email or web address] PCP - General Internal Medicine 01/25/17 documented as of this encounter Additional Source Comments The information contained in this document represents components of the legal health record. It is not the complete legal health record.[facility]
--- OUTSIDE RECORDS SUMMARY | 2025-01-10 15:04 | XMS_ITS | Encounter Summary ---
Author Organization [facility] Address [address] [place] [address] Phone Care Team Providers Care Gum Sprayer Name Role Phone Alicia Talavera MD Primary Care Provider [phone] Encounter Details Date Type Department Care Team (Late Contact Info) Description 06/05/2022 Ancillary Orders [facility] [address] [address] Alicia Talavera MD [address] [place] [address] [email or web address] Swelling; Pain Social History Tobacco Use Types Packs/Day Years [...] st Contact Info) Description 12/13/2024 Procedure Pass [address] [address] 08/07/2025 8:00 AM EDT Appointment [address] [address] Alicia Talavera MD [address] [place] [phone] [email or web address] documented as of this encounter Results * XR HAND 3 OR MORE VIEWS (BILATERAL) (06/05/2022 10:44 AM EDT) Anatomical Region Laterality Modality Hand Left Computed Radiogr aphy 06/07/2022 12:0 8 AM EDT Impressions 06/07/2022 12:12 AM EDT Peripheral and radial predominant joint space narrowing in a pattern most typical for osteoarthritis. No findings to suggest superimposed inflammatory arthritis. Left fifth PIP joint soft tissue swelling with smooth dorsal cortical remodeling along the fifth middle phalanx. Mild DIP predominant joint space narrowing. RECOMMENDATION: Consider orthopedic and/or rheumatology evaluation of the fifth finger on the left. MR finger with and without contrast would be helpful. Narrative 06/07/2022 12:12 AM EDT XR HAND 3 OR MORE VIEWS (BILATERAL) COMPARISON: XR HAND 3 OR MORE VIEWS (LEFT) ; XR HAND (RIGHT) FINDINGS: RIGHT HAND: Mild soft tissue swelling at the PIP joints. No acute fracture. Bones slightly demineralized. No subluxation. Mild joint space narrowing affects the DIP joints. No periarticular bone loss or erosion. LEFT HAND: Mild soft tissue swelling at the PIP joints, particularly the fifth PIP joint on lateral view. No acute fracture. Unchanged ossific structure at the ulnar styloid may reflect prior injury. Bones slightly demineralized. No subluxation. Mild joint space narrowing affects the DIP joints. No periarticular bone loss or erosion. Procedure Note Will Taylor MD - 06/07/2022 XR HAND 3 OR MORE VIEWS (BILATERAL) COMPARISON: XR HAND 3 OR MORE VIEWS (LEFT) ; XR HAND (RIGHT) FINDINGS: RIGHT HAND: Mild soft tissue swelling at the PIP joints. No acutefracture. Bones slightly demineralized. No subluxation. Mild joint spacenarrowing affects the DIP joints. No periarticular bone loss or erosion. LEFT HAND: Mild soft tissue swelling at the PIP joints, particularly thefifth PIP joint on lateral view. No acute fracture. Unchanged ossificstructure at the ulnar styloid may reflect prior injury. Bones slightlydemineralized. No subluxation. Mild joint space narrowing affects the DIPjoints. No periarticular bone loss or erosion. IMPRESSION: Peripheral and radial predominant joint space narrowing in a pattern mosttypical for osteoarthritis. No findings to suggest superimposedinflammatory arthritis. Left fifth PIP joint soft tissue swelling with smooth dorsal corticalremodeling along the fifth middle phalanx. Mild DIP predominant joint space narrowing. RECOMMENDATION: Consider orthopedic and/or rheumatology evaluation of the fifth finger onthe left. MR finger with and without contrast would be helpful. Alicia Talavera MD IMG XR UPPER EXTREMITY Namita l Result documented in this encounter Visit Diagnoses Diagnosis Swelling Localized superficial swelling, mass, or lump Pain Generalized pain Swelling Localized superficial swelling, mass, or lump Pain Generalized pain documented in this encounter Care Teams Gum Sprayer Relationship Specialty Start Date End Date Alicia Talavera MD [address] [place] [phone] [email or web address] PCP - General Internal Medicine 01/25/17 documented as of this encounter Additional Source Comments The information contained in this document represents components of the legal health record. It is not the complete legal health record.[facility]
--- OUTSIDE RECORDS SUMMARY | 2025-01-10 15:04 | XMS_ITS | Clinical Summary ---
Author Organization [facility] Address [address] [place] [address] Care Team Providers Care Records Specialist Name Role Phone Alicia Talavera Primary Care Provider [phone] Allergies No known active allergies Medications * This document contains information received from the source organization and may not represent a complete record from that organization. vitamin B complex capsule Take 1 capsule by mouth daily. Active calcitriol (ROCALTROL) 0.25 mcg capsule Take 0.25 mcg by mouth daily. 2 8 Active calcium citrate-vitamin D3 (CITRACAL WITH VITAMIN D) 200 mg calcium -250 unit tablet tablet Take 1 tablet by mouth daily. 11 8 Active cholecalciferol, vitamin D3, 5,000 unit tablet Take 4,000 Units by mouth once a day. Active docusate sodium (COLACE) 100 mg capsule TAKE ONE CAPSULE BY MOUTH EVERY EVENING DIRECTED 6 8 Active folic acid (FOLVITE) 1 mg tablet Take 1 mg by mouth daily. 5 8 Active carbamide peroxide (DEBROX) 6.5% otic solution Place 3 drops into each ear daily. Active SIMETHICONE ORAL Take by mouth. Active gabapentin (NEURONTIN) 100 mg capsule Take by mouth nightly. Per pt take 200 mg at nightly 2 Active FLUoxetine (PROzac) 20 mg capsule Take 1 capsule (20 mg total) by mouth every morning. 90 capsule 3 2 Active FLUoxetine (PROzac) 40 mg capsule Take 1 capsule (40 mg total) by mouth every morning. 90 capsule 3 2 Active busPIRone (BUSPAR) 10 mg tabletIndication s:Generalized anxiety disorder Take 2 tablets (20 mg total) by mouth 3 times a day. 540 tablet 3 2 Active methylcellulose, laxative, (CitruceL) 500 mg tablet Take 1 tablet by mouth once a day. Active multivitamin (THERAGRAN) tablet Take 1 tablet by mouth once a day. Active meloxicam (MOBIC) 15 mg tablet 15 mg once a day. 5 Active Dilantin Extended 100 mg capsuleIndicatio ns:Nonintractabl e generalized idiopathic epilepsy without status epilepticus TAKE 2 CAPSULES BY MOUTH TWICE A DAY ON WEDNESDAY, WEDNESDAY & WEDNESDAY TAKE 2 CAPSULES BY MOUTH DAILY IN THE MORNING ON WEDNESDAY, WEDNESDAY, WEDNESDAY AND WEDNESDAY TAKE 1 CAPSULE BY MOUTH DAILY IN THE EVENING ON WEDNESDAY, WEDNESDAY, WEDNESDAY & WEDNESDAY 96 capsule 11 5 Active PHENobarbitaL 64.8 mg tabletIndication s:Nonintractable generalized idiopathic epilepsy without status epilepticus TAKE 1.5TABS 2XD WED/WED TAKE 1.5TABS AM AND 1 TAB PM Wed SAT SUN 80 tablet 5 5 Active Active Problems Problem Noted Date Diagnosed Date Chronic static encephalopathy 07/22/2020 Mild developmental delay 07/21/2016 Generalized anxiety disorder 01/10/2015 Major depressive disorder, r ecurrent, in remission, unspecified 11/01/2014 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 She remains on her historical combination of namebrand Dilantin and phenobarbital, without definite issues with subjective side effects. On exam today, she does still have the Dupuytren's contracture in the left hand, which we again discussed may well be related to the chronic use of phenobarbital. Today, as well as in the past, we have discussed the potential for trials off or reducing the doses of ASMs, or simply replacing one or both with something newer and perhaps better tolerated. However, her mother has advocated that she remain on this medication regimen for as long as is medically reasonable given breakthrough seizure in the past with attempts at weaning one of the agents. Thus, we will continue the medications at the same doses without any changes. If/when the opportunity arises, can consider simplifying her medication dosing regimen to something less complex to avoid errors in the future. Assessment & Plan (08/05/2023 3:37 PM EDT): Patient presents today with her care mgr Karime to reestablish care with me now that I have returned to [facility]. Since she was last seen, there have been no seizures or seizure-like events. She did have an unrelated fall with a wrist sprain last year. She remains on her historical combination of namebrand Dilantin and phenobarbital, without definite issues with subjective side effects. On exam today, she does continue to have the Dupuytren's contracture in the left hand, which we discussed may well be related to the chronic use of phenobarbital. Today, as well as in the past, we have discussed the potential for trials off or reducing the doses of ASMs, or simply replacing one or both with something newer and perhaps better tolerated. However, her mother has advocated that she remain on this medication regimen for as long as is medically reasonable given breakthrough seizure in the past with attempts at weaning one of the agents. Thus, we will continue the medications at the same doses without any changes today. If/when the opportunity arises, I would like to simplify her medication dosing regimen to avoid errors in the future. Will check trough medication levels. Will plan to see her back in 1 year, sooner as needed. Assessment & Plan (09/29/2022 11:30 AM EDT): - continue current regimen: Phenobarbital 97.2mg qam Phenobarbital 64.8mg qpm TWThSSu Phenobarbital 97.2mg qpm MF Dilantin 200mg qam Dilantin 200mg qpm SaTTh Dilantin 100mg qpm SuMWF Vitamin D 4000U daily - obtain updated bone density scan (last pre-Covid was neg) - reviewed blood work from May which was within range Seizure precautions were reviewed as well as side effects of the medication(s). The patient knows to contact me should side effects occur. I spent a total of 30 minutes on the date of encounter, which included: Obtaining and/or reviewing separately obtained history Performing a medically appropriate exam and/or evaluation Counseling and educating the patient/family/caregiver Ordering medications, tests, procedures Documenting clinical information in the health record Resolved Problems Problem Noted Date Diagnosed Date Resolved Date Anxiety disorder 11/01/2014 02/22/2017 Encounters Date Type Department Care Team Description 12/29/2024 Telephone [facility] [address] [place] [id number] Mine Garcia [place] from Last 3 Months Family History Medical History Relation Name Comments Other Mother No pertinent fa kirill history Relation Name Status Comments Mother Social History Tobacco Use Types Packs/Day Years [...] Orientation Straight 06/15/2019 4: 25 PM EDT Last Filed Vital Signs Vital Sign Reading Time Taken Comments Blood Pressure 112/74 08/01/2024 10:41 AM EDT Pulse 59 08/01/2024 10:41 AM EDT Temperature 36.6 C (97.9 F) 08/01/2024 10:41 AM EDT Respiratory Rate 16 08/01/2024 10:41 AM EDT Oxygen Saturation 98% 08/01/2024 10:41 AM EDT Inhaled Oxygen Concentration - - Weight 95.7 kg (211 lb) 08/01/2024 10:41 AM EDT Height 157.5 cm (5' 2 ) 08/01/2024 10:41 AM EDT Body Mass Index 38.59 08/01/2024 10:41 AM EDT Plan of Treatment Health Maintenance Due Date Last Done Comments Cologuard 1967 Colon Cancer Screening 1967 Colonoscopy 1967 FOBT / Fit Test 1967 HIV Screening 1967 HPV and Pap Smear 1967 Hepatitis C Screening 1967 Sigmoidoscopy 1967 Medicare AWV 08/18/1968 Hepatitis B Vaccines (1 of 3 - 19+ 3-dose series) 08/18/1986 DTaP,Tdap,and Td Vaccines (1 - Tdap) 08/18/1989 Alcohol/Substance Use Screening 03/22/2024 Depression Screening and Follow-Up 03/22/2024 Social Drivers of Health Marixa ual Screening 03/22/2024 COVID-19 Vaccine (6 - 2024-2 6 season) 2024 12/22/2022, 01/09/2022, 12/21/2020, Additional history exists Influenza Vaccine (#1) 2024 , 01/09/2022, 01/31/2021, Additional history exists Mammogram 09/13/2025 09/14/2023, 08/21, 07/27/2022, Additional history exists Cervical Cancer Screening 11/23/2026 Pap Smear 11/23/2026 11/24/2023, 11/09/2022 Diabetes Screening 12/28/2026 12/29/2023, 0 06/04/2023, 06/25/2021, Additional history exists RSV Vaccine (60+ years old a nd patients) (1 - 1-dose 75+ series) 08/18/2042 Zoster Vaccines Completed 02/28/2021, 12/02/2020 Pneumococcal Vaccine: 50+ Years Completed Procedures * Due to [place] Med Access law, this organization might not be sharing negative HIV tests. Procedure Name Priority Date/Time Associated Diagnosis Comments COMPREHENSIVE METABOLIC PANEL Routine 07/22/2020 3:55 PM EDT Nonintractable epilepsy without status epilepticus, unspecified epilepsy type from Last 3 Months or Most Recently Relevant to Health Maintenance Results * Due to [place] state law, this organization might not be sharing negative HIV tests. * (ABNORMAL) Comprehensive Metabolic Panel (07/22/2020 3:55 PM EDT) NA 138 135 - 145 mmol/L 07/22/2020 4:41 PM EDT [facility] K 4.0 3.5 - 5.3 mmol/L 07/22/2020 4:41 PM EDT [facility] Cl 102 97 - 110 mmol/L 07/22/2020 4:41 PM EDT [facility] CO2 31 24 - 32 mmol/L 07/22/2020 4:41 PM EDT [facility] Anion Gap 5 5 - 15 07/22/2020 4:41 PM EDT [facility] Glucose 95 70 - 99 mg/dL 07/22/2020 4:41 PM EDT [facility] Creatinine 0.63 0.50 - 1.20 mg/dL 07/22/2020 4:41 PM EDT [facility] eGFR Non- >90 >=90 mL/min/BS A 07/22/2020 4:41 PM EDT [facility] eGFR >90 >=90 mL/min/BS A 07/22/2020 4:41 PM EDT [facility] Comment: Units = mL/min/1.73 m2 Glomerular Filtration Rate (GFR) is estimated based on the CKD-EPI Creatinine Equation (2009). Stage Description GFR 1 Normal >=90 mL/min/BSA 2 Mildly decreased GFR 60-89 mL/min/BSA 3 Moderately decreased GFR 30-59 mL/min/BSA 4 Severely decreased GFR 15-29 mL/min/BSA 5 Kidney Failure <15 mL/min/BSA Calcium 9.6 8.7 - 10.7 mg/dL 07/22/2020 4:41 PM EDT [facility] Total Protein 7.2 6.0 - 8.0 g/dL 07/22/2020 4:41 PM EDT [facility] Albumin 4.2 3.5 - 4.8 g/dL 07/22/2020 4:41 PM EDT [facility] Bilirubin, Total 0.2(L) 0.3 - 1.2 mg/dL 07/22/2020 4:41 PM EDT [facility] Alkaline Phosphatase 152(H) 30 - 115 U/L 07/22/2020 4:41 PM EDT [facility] AST 14 10 - 40 U/L 07/22/2020 4:41 PM EDT [facility] ALT 16 10 - 40 U/L 07/22/2020 4:41 PM EDT [facility] BUN 12 7 - 23 mg/dL 07/22/2020 4:41 PM EDT [facility] Blood Structure of peripheral vein / Unknown Venipuncture / Unknown 07/22/2020 3:55 PM EDT 07/22/2020 4:06 PM EDT us Ryan Bonds MD LAB BLOOD ORDERABLES Final Resul t [facility] [address] [place] [address], from Last 3 Months or Most Recently Relevant to Health Maintenance Insurance MEDICARE Member Subscriber Plan / Payer (Ef fective 1994-Present) Name:Jennifer Hurley Member ID:[id number] Relation to Subscriber:Self Name:Jennifer Hurley Subscriber ID:[id number] Payer ID:[id number] Group ID:Not on file Type:Not on file Address: [address] [place] [phone] [facility] Care Teams Records Specialist Relationship Specialty Start Date End Date Alicia Talavera [address] [place] [address] PCP - General 10/08/16
== END 2025-01-10 10:31 | disposition home or self-care (01) ==
LOC: HO.HMGCX 10:30
PROVIDERS: PCP Internal Medicine; Visit Provider Physician Assistant
DX: M54.6 Pain in thoracic spine (principal); Z91.81 History of falling
CPT/HCPCS: 71101; 99202

== ENCOUNTER 2025-01-10 10:30 | Outpatient (AMB) | payer MEDICARE, OTHER, MEDICAID, SELFPAY ==
--- NOTE | 2025-01-10 10:37 | AM.OFFWIN_ITS ---
Intake Vital Signs 01/10/25 10:38 Height 5 ft 4 in Weight 212 lb BMI 36.4 BP 120/75 Blood Pressure Location Lt brachial Position Sitting Pulse 67 Pulse Source Pulse Oximeter Temp 98.5 F Temp Source Oral Pulse Oximetry (%) 98 Oxygen Delivery Method Room Air Intake Visit Reasons: EP-rt underarm pain from a fall Intake Note: The EP fell down last night a water tap and hurt under her right arm. Allergies No Known Allergies Allergy (Verified 10/28/24 12:24) Do you need a note to return to daycare/school/sports/work: Yes HPI HPI Comments History of Present Illness Details History of Present Illness - The patient is a 59-year-old female pr esenting with a fall-related injury. - The patient fell in the bathtub last n ight, slipping, which led to the fall on her right side, hitting her right armpit on the tub. - She reports pain in the shoulder and r ib area, with no initial bleeding obse rved. - The patient denies any dizziness or ch est pain prior to the fall. - She has been using a heating pad for c omfort. Has not tried ice. - The patient has been prescribed meloxi cam for pain management, which she takes nightly, isn't helping the pain. - Denies shortness of breath Review of Systems - Musculoskeletal: Reports pain in the s houlder and rib area, denies any dizziness or chest pain prior to the fall. - Respiratory: Denies shortness of breat h. All systems reviewed and are unremarkable except as noted in HPI Physical Exam General: Cooperative, healthy appearing, comfortable, no acute distress and well developed Orientation: Patient oriented x3 Limitations: Limited range of motion in the right arm due to pain Head: Normal to inspection Ears: Hearing grossly normal bilaterally Nose: Normal External nose present Face and sinus: Normal facial exam Eyes: Appearance normal, both eyes and all related structures Neck: Normal visual inspection and Yes full ROM Chest: TTP right posterior axillary line around T5-T7 with some ecchymosis Respiratory: Normal respiratory effort and able to speak in complete sentences. No shortness of breath noted. Skin: 2 parallel linear abrasions on mid thoracic back near axilla with surrounding erythema and slight ecchymosis, TTP of this area. no signs of infection noted. Neuro: Patient oriented x3 Extremities: full ROM right shoulder, no ecchymosis, full ROM elbow. no ecchymosis on right forearm or upper arm, hand normal appearing with full ROM and radial pulse intact. Physical Exam Vital Signs: Last Vital Signs Temp 98.5 F 01/10/25 10:38 Pulse 67 01/10/25 10:38 BP 120/75 01/10/25 10:38 Pulse Ox 98 01/10/25 10:38 Oxygen Delivery Method Room Air 01/10/25 10:38 BMI result Body Mass Index 36.4 Assessment & Plan Assessment & Plan (1) Fall as cause of accidental injury at home as place of occurrence: Code(s): W19.XXXA - Unspecified fall, initial encounter; Y92.009 - Unspecified place in unspecified non-institutional (private) residence as the place of occurrence of the external cause Qualifiers: Encounter type: initial encounter Qualified Code(s): W19.XXXA - Uns pecified fall, initial encounter; Y92.009 - Unspecified place in unspecified non-institutional (private) residence as the place of occurrence of the external cause Plan: Patient was informed and verbally consented to the use of an ambient scribe for clinic note documentation during this visit. Fall-Related Injury - An x-ray was ordered to assess for possible rib fractures. - The patient was advised to use ice and rest to manage swelling and pain. - Meloxicam was continued for pain management, with instructions to avoid additional NSAIDs to prevent double dosing. - A note was provided to excuse the patient from work until Wednesday, allowing time for recovery. - Can use Diclofenac gel or salonpas patches. - Ice or heat, as needed - My interpretation of the rib x-ray is there is no acute fracture of the right side ribs. - Filled out paperwork for patient and wrote a work note so she may be excused until Wednesday. (2) Acute thoracic back pain: Code(s): M54.6 - Pain in thoracic spine Qualifiers: Back pain laterality: right Qualified Code(s): M54.6 - Pain in thoracic spine Plan: as above Orders: Orders XR ribs RT min 3V w CXR1V Today M54.6 - Pain in thoracic spine, W19.XXXA - Unspecified fall, initial encounter, Y92.009 - Unspecified place in unspecified non-institutional (private) residence as the place of occurrence of the external cause Coding Level of Care Code New Pt Level 4 (59423) Diagnoses Fall as cause of accidental injury in home as place of occurrence, initial encounter W19.XXXA; Y92.009 Encounter type: initial encounter Acute right-sided thoracic back pain M54.6 Back pain laterality: right
[2025-01-10 10:38] VITALS: BP 120/75; PULSE 67; TEMP 36.9; O2SAT 98; BMI 36.4
== END 2025-01-10 11:19 | disposition home or self-care (01) ==
PROVIDERS: PCP Internal Medicine; Visit Provider Physician Assistant
DX: M54.6 Pain in thoracic spine (principal); W19.XXXA Unspecified fall, initial encounter; Y92.009 Unspecified place in unspecified non-institutional (private) residence as the place of occurrence of the external cause

== ENCOUNTER → 2025-01-10 11:19 | Outpatient (BNV) | payer MEDICARE, OTHER, MEDICAID, SELFPAY | PROVIDERS: PCP Internal Medicine; Visit Provider Radiology Diagnostic Radiology | DX: M54.6 Pain in thoracic spine (principal); W19.XXXA Unspecified fall, initial encounter | CPT/HCPCS: 71101 ==